=== PATIENT | female | born 1970 | race Caucasian/White ===

== ENCOUNTER 2020-02-23 08:42 | Outpatient (CLI) | payer BC, SELFPAY ==
--- NOTE | ~2020-02-23 | MM_ITS ---
EXAMINATION: MM screening [facility] w laura HISTORY: Screening mammogram TECHNIQUE: Craniocaudal and mediolateral oblique 3-D tomosynthesis images were obtained and synthetic 2-D images were generated. CAD analysis was submitted and interpreted. COMPARISON: No prior mammogram is available for comparison at this institution. BREAST PARENCHYMAL COMPOSITION: The breasts are heterogeneously dense, which may obscure small masses . FINDINGS: RIGHT BREAST: There is no evidence of suspicious mass, calcification, or architectural distortion to suggest malignancy. LEFT BREAST: There is a possible mass in the posterior third of the slightly lower outer breast. IMPRESSION: 1. Possible left breast mass which may represent the patient's baseline however no comparison is curr ently available. 2. Comparison with prior mammograms is necessary. BI-RADS Category 0: Incomplete: Needs comparison with prior mammograms. Reviewed, dictated and finalized at location A. MOBILE PARKER IMPRESSION: 1. Possible left breast mass which may represent the patient's baseline however no comparison is currently available. 2. Comparison with prior mammograms is necessary. BI-RADS Category 0: Incomplete: Needs comparison with prior mammograms.
== END 2020-02-23 08:43 | disposition home or self-care (01) ==
LOC: ANHIMG 08:45
PROVIDERS: PCP Internal Medicine; Visit Provider Obstetrics & Gynecology Gynecology
DX: Z12.31 Encounter for screening mammogram for malignant neoplasm of breast (principal); R91.8 Other nonspecific abnormal finding of lung field
CPT/HCPCS: 77063; 77067

== ENCOUNTER 2020-04-15 13:07 | Outpatient (CLI) | payer BC, SELFPAY ==
--- NOTE | ~2020-04-15 | MMUS_ITS ---
EXAMINATION: MM diagnostic mammo unilat LT, US breast LT limited HISTORY: Possible left breast mass on screening mammogram TECHNIQUE: Additional 3-D tomosynthesis images of the left breast were performed and synthetic 2-D im ages were generated. CAD analysis was submitted and interpreted. High resolution limited left breast ultrasound was performed. COMPARISON: 10/23/2019, 03/13/2019, 02/20/2019, 01/28/2018 BREAST PARENCHYMAL COMPOSITION: The breasts are heterogeneously dense, which may obscure small masses . FINDINGS: MAMMOGRAPHIC FINDINGS: No definite persistent mass is identified with spot compression views of the breast. There is no susp icious calcification or architectural distortion. ULTRASOUND: There is no evidence of focal abnormal solid or cystic lesion in the vicinity of the mammographic fin ding in question. IMPRESSION: 1. No mammographic or sonographic evidence of malignancy. 2. Recommend routine screening mammography in one year. BI-RADS Category 1: Negative Reviewed, dictated and finalized at location A. UNITY SERVICE WORKER IMPRESSION: 1. No mammographic or sonographic evidence of malignancy. 2. Recommend routine screening mammography in one year. BI-RADS Category 1: Negative
== END 2020-04-15 13:08 | disposition home or self-care (01) ==
LOC: ANHIMG 13:08
PROVIDERS: PCP Internal Medicine; Visit Provider Obstetrics & Gynecology Gynecology
DX: R92.8 Other abnormal and inconclusive findings on diagnostic imaging of breast (principal)
CPT/HCPCS: 76642; 77065

== ENCOUNTER 2021-02-23 11:40 | Outpatient (CLI) | payer BC, SELFPAY ==
--- NOTE | ~2021-02-23 | MM_ITS ---
EXAMINATION: MM screening [facility] BI w laura HISTORY: Screening mammogram TECHNIQUE: Craniocaudal and mediolateral oblique 3-D tomosynthesis images were obtained and synthetic 2-D images were generated. CAD analysis was submitted and interpreted. COMPARISON: 04/15/2020, 02/23/2020, 03/13/2019 BREAST PARENCHYMAL COMPOSITION: The breasts are heterogeneously dense, which may obscure small masses . FINDINGS: There is no evidence of suspicious mass, calcification, or architectural distortion to sugg est malignancy in either breast. There has been no suspicious interval change. IMPRESSION: 1. No mammographic evidence of malignancy. 2. Recommend routine screening mammography in one year. BI-RADS Category 1: Negative Reviewed, dictated and finalized at location A. ING MACHINE OPERATOR [employer]PER [employer]
== END 2021-02-23 11:41 | disposition home or self-care (01) ==
LOC: ANHIMG 11:41
PROVIDERS: PCP Internal Medicine; Visit Provider Obstetrics & Gynecology Gynecology
DX: Z12.31 Encounter for screening mammogram for malignant neoplasm of breast (principal)
CPT/HCPCS: 77063; 77067

== ENCOUNTER 2022-03-15 08:54 | Outpatient (CLI) | payer BC, SELFPAY ==
--- NOTE | ~2022-03-15 | MM_ITS ---
EXAMINATION: MM screening [facility] BI w laura HISTORY: Screening mammogram TECHNIQUE: Craniocaudal and mediolateral oblique 3-D tomosynthesis images were obtained and synthetic 2-D images were generated. CAD analysis was submitted and interpreted. COMPARISON: 02/23/2021, 04/15/2020, 02/23/2020, 03/13/2019 BREAST PARENCHYMAL COMPOSITION: The breasts are heterogeneously dense, which may obscure small masses . FINDINGS: No suspicious mass, calcification, or architectural distortion are identified in either jd ast to suggest malignancy. There has been no suspicious interval change. IMPRESSION: 1. No mammographic evidence of malignancy. 2. Recommend routine screening mammography in one year. BI-RADS Category 1: Negative Reviewed, dictated and finalized at location A. F OPERATOR
== END 2022-03-15 08:55 | disposition home or self-care (01) ==
PROVIDERS: PCP Internal Medicine; Visit Provider Obstetrics & Gynecology Gynecology
DX: Z12.31 Encounter for screening mammogram for malignant neoplasm of breast (principal)
CPT/HCPCS: 77063; 77067

== ENCOUNTER 2023-01-19 03:49 | Day surgery (SDC) | payer BC, SELFPAY ==
[2023-01-08 13:40] VITALS: BMI 28.3
[2023-01-19 11:41] VITALS: BP 143/94; PULSE 77; RESP 16; TEMP 36.3; O2SAT 100
--- NOTE | 2023-01-19 11:48 | WPDANESEPPF ---
Anes - Initial Pre Proc Eval Procedure: Operation Date: 01/19/23 12:30 Proposed Procedures p Screening Colonoscopy - Luís Yost MD Date/Time: 01/19/23 11:48 Surgeon: Luís Yost MD Pre Op Diagnosis: neoplasm screening Patient Data Age: 52 Gender: F Height: 1.63 m Weight: 77.2 kg Last Vital Signs Temp 97.3 F L 01/19/23 11:41 Pulse 77 01/19/23 11:41 Resp 16 01/19/23 11:41 BP 143/94 H 01/19/23 11:41 Pulse Ox 100 01/19/23 11:41 O2 Del Method Room Air 01/19/23 11:41 Allergies Allergy/AdvReac Type Severity Reaction Status Date / Time prednisone AdvReac Unknown Unknown Verified 01/08/23 13:39 Home Medications Medication Instructions Recorded Confirmed Type lisinopril 20 2 tablet PO DAILY 11/09/20 01/19/23 History mg-hydrochlorothiazide 12.5 mg tablet oxybutynin chloride 10 mg 10 mg PO DAILY 11/09/20 01/08/23 History tablet,extended release 24 hr amlodipine 5 mg tablet 5 mg PO DAILY 09/07/22 01/19/23 History aspirin 81 mg tablet,delayed 81 mg PO DAILY 09/07/22 01/08/23 History release (Adult Low Dose Aspirin) azelastine 137 mcg (0.1 %) nasal 1 spray intranasal Q12H 09/07/22 01/08/23 History spray aerosol fexofenadine 180 mg tablet 180 mg PO DAILY 09/07/22 01/08/23 History (Roxy Allergy) Patient hx anesthesia problems: none Family hx anesthesia problems: none Results Review: All pre-operative results and documents have been reviewed as part of the pre-operative evaluation. [facility] Past Medical History Medical History (Updated 09/07/22 @ 10:14 by Vipul Weiner MD) History of MRSA infection Hypertension Pain of left heel Plantar fasciitis of left foot Polycystic kidney disease Screening for cholesterol level Screening for colon cancer Screening for thyroid disorder Seasonal allergies Ventral hernia with bowel obstruction Vitamin D deficiency Surgical History Surgical History (Updated 11/09/20 @ 10:10 by Kristan Rodriguez RT(R)) History of section History of hernia repair x2 Family History Family History Mother Diabetes mellitus Hypertension Father Hypertension Malignant neoplasm of prostate Other Family history of kidney disease Social History Social History (Updated 09/07/22 @ 09:55 by Lora [facility]) Smoking status: Never smoker Alcohol intake: current Drinks per week: 3 Alcohol use details: 2 per month Substance use: never Substance use type: does not use Lack of Transportation: No Lack of Food: Never True Current Housing: I Have Housing Concerned About Future Housing: No Difficulty Paying Gas/Electric Bills: No Difficulty Paying for Meds: No Currently Unemployed: No Education: Don't Know Difficulty w/ Childcare or Family Care: No Living arrangements: with family Occupation/Education: occupation 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 Informed Consent: The patient's anesthetic plan and its attendant risks and benefits were discussed with the patient/family/POA. Questions were solicited and answers provided to the satisfaction of the patient/family/POA.
[2023-01-19] MEDS: LACTATED RINGERS 1,000 ML 150 ML IV CONT (11:53)
--- NOTE | 2023-01-19 12:13 | PM.HPGS ---
History of Present Illness History of Present Illness Consent: Risks, benefits, and alternatives have been discussed and questions answered. Patient agrees to proceed with procedure. Chief complaint: neoplasm screening Narrative: Nadia Padgett is a 52 year old female Presents for screening colonoscopy. Patient's current weight appetite and bowel movements are normal. She denies abdominal pain. She has had no bleeding. Family history is noncontributory. Review of Systems Review of Systems: Review of systems noncontributory. [facility] Past Medical History Medical History (Updated 09/07/22 @ 10:14 by Vipul Weiner MD) History of MRSA infection Hypertension Pain of left heel Plantar fasciitis of left foot Polycystic kidney disease Screening for cholesterol level Screening for colon cancer Screening for thyroid disorder Seasonal allergies Ventral hernia with bowel obstruction Vitamin D deficiency Surgical History Surgical History (Updated 11/09/20 @ 10:10 by Kristan Rodriguez, RT(R)) History of section History of hernia repair x2 Family History Family History Mother Diabetes mellitus Hypertension Father Hypertension Malignant neoplasm of prostate Other Family history of kidney disease Social History Social History (Updated 09/07/22 @ 09:55 by Lora Barney [facility]) Smoking status: Never smoker Alcohol intake: current Drinks per week: 3 Alcohol use details: 2 per month Substance use: never Substance use type: does not use Lack of Transportation: No Lack of Food: Never True Current Housing: I Have Housing Concerned About Future Housing: No Difficulty Paying Gas/Electric Bills: No Difficulty Paying for Meds: No Currently Unemployed: No Education: Don't Know Difficulty w/ Childcare or Family Care: No Living arrangements: with family Occupation/Education: occupation 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 [employer] Spiritual care concerns: No Agree to blood products: Yes Meds Home Medications and Allergies Home Medications Medication Instructions Recorded Confirmed Type lisinopril 20 2 tablet PO DAILY 11/09/20 01/19/23 History mg-hydrochlorothiazide 12.5 mg tablet oxybutynin chloride 10 mg 10 mg PO DAILY 11/09/20 01/08/23 History tablet,extended release 24 hr amlodipine 5 mg tablet 5 mg PO DAILY 09/07/22 01/19/23 History aspirin 81 mg tablet,delayed 81 mg PO DAILY 09/07/22 01/08/23 History release (Adult Low Dose Aspirin) azelastine 137 mcg (0.1 %) nasal 1 spray intranasal Q12H 09/07/22 01/08/23 History spray aerosol fexofenadine 180 mg tablet 180 mg PO DAILY 09/07/22 01/08/23 History (Roxy Allergy) Allergies Allergy/AdvReac Type Severity Reaction Status Date / Time prednisone AdvReac Unknown Unknown Verified 01/08/23 13:39 Vital Signs Vital Signs - 24 hr 01/19/23 11:41 Temperature 97.3 F L Pulse Rate 77 Respiratory Rate 16 Blood Pressure 143/94 H Pulse Oximetry 100 Oxygen Delivery Room Air Exam Narrative: Physical exam reveals patient to be alert. Vital signs stable. HEENT exam is unremarkable. Patient is anicteric. Lungs are clear to auscultation and percussion. Heart is without murmur or extra sounds. Abdomen bowel sounds are present soft nontender with no organomegaly. Digital external rectal exam normal. Assessment and Plan Assessment and plan (1) Screening for colon cancer: Code(s): Z12.11 - Encounter for screening for malignant neoplasm of colon Status: Acute Assessment and Plan: Patient presents for neoplasia screening colonoscopy. She appears to be at average risk for colon polyps. Further recommendations may be given after endoscopy.
[2023-01-19 13:23] VITALS: BP 116/81; PULSE 83; RESP 21; O2SAT 100
[2023-01-19 13:33] VITALS: BP 95/65; PULSE 78; RESP 13; O2SAT 100
[2023-01-19 13:43] VITALS: BP 125/91; PULSE 73; RESP 18; O2SAT 100
== END 2023-01-19 13:47 | disposition home or self-care (01) ==
PROVIDERS: PCP Family Medicine; Visit Provider Internal Medicine Gastroenterology
PROC: 0DJD8ZZ Inspection of Lower Intestinal Tract, Via Natural or Artificial Opening Endoscopic (ICD-10-PCS; CPT 45378; principal; 2023-01-19 12:30)
DX: Z12.11 Encounter for screening for malignant neoplasm of colon (principal); K63.5 Polyp of colon; K64.8 Other hemorrhoids; I10 Essential (primary) hypertension; Z79.82 Long term (current) use of aspirin
CPT/HCPCS: 45380; 88305; J2704; J7120

== ENCOUNTER → 2023-05-10 07:12 | Outpatient (CLI) | payer BC, SELFPAY ==
--- NOTE | ~2023-05-10 | MM_ITS ---
EXAMINATION: MM screening [facility] w laura HISTORY: Screening TECHNIQUE: Craniocaudal and mediolateral oblique 3-D tomosynthesis images were obtained and synthetic 2-D images were generated. CAD analysis was submitted and interpreted. COMPARISON: Comparison to multiple prior studies sequentially, with oldest reviewed study dated 02/07. BREAST PARENCHYMAL COMPOSITION: Not dense: There are scattered areas of fibroglandular density. FINDINGS: There are new asymmetries in the upper outer quadrant of the right breast and periareolar l ocation of the left breast on CC view. There are no suspicious calcifications. IMPRESSION: 1. Developing bilateral breast asymmetries. 2. Additional mammographic views and possible breast ultrasound are recommended. BI-RADS Category 0: Incomplete: Needs additional imaging evaluation. Reviewed, dictated and finalized at location A. R ASSEMBLER IMPRESSION: 1. Developing bilateral breast asymmetries. 2. Additional mammographic views and possible breast ultrasound are recommended . BI-RADS Category 0: Incomplete: Needs additional imaging evaluation.
== END ==
PROVIDERS: PCP Obstetrics & Gynecology Gynecology; Visit Provider Obstetrics & Gynecology Gynecology
DX: Z12.31 Encounter for screening mammogram for malignant neoplasm of breast (principal); R92.8 Other abnormal and inconclusive findings on diagnostic imaging of breast
CPT/HCPCS: 77063; 77067

== ENCOUNTER → 2023-06-05 08:39 | Outpatient (CLI) | payer BC, SELFPAY ==
--- NOTE | ~2023-06-05 | MMUS_ITS ---
EXAMINATION: MM diagnostic [facility] BI w laura, US breast BI limited HISTORY: Follow-up right breast asymmetries TECHNIQUE: Additional 3-D tomosynthesis images of the breasts were performed and synthetic 2-D images were generated. CAD analysis was submitted and interpreted. High resolution limited bilateral breast ultrasound was performed. COMPARISON: Comparison to multiple prior studies sequentially, with oldest reviewed study dated 02/07. BREAST PARENCHYMAL COMPOSITION: Dense: The breasts are heterogeneously dense, which may obscure small masses FINDINGS: MAMMOGRAPHIC FINDINGS: Bilateral breast asymmetries are less apparent with spot compression and mediolateral views, most lik meron benign fibroglandular tissue. No discrete mass or architectural distortion is identified. ULTRASOUND: Limited bilateral breast ultrasound: Normal heterogeneous echotexture in both breasts. No discrete so lid or cystic mass. IMPRESSION: 1. No evidence for malignancy in either breast. 2. Routine yearly screening mammogram and regular clinical breast examination are recommended. BI-RADS Category 1: Negative Reviewed, dictated and finalized at location A. GATHERER IMPRESSION: 1. No evidence for malignancy in either breast. 2. Routine yearly screening mammogram and regular clinical breast examination a re recommended. BI-RADS Category 1: Negative
== END ==
PROVIDERS: PCP Obstetrics & Gynecology Gynecology; Visit Provider Obstetrics & Gynecology Gynecology
DX: R92.8 Other abnormal and inconclusive findings on diagnostic imaging of breast (principal)
CPT/HCPCS: 76642; 77062; 77066; G0279

== ENCOUNTER 2023-06-18 12:07 | Outpatient (CLI) | payer BC, SELFPAY ==
--- NOTE | ~2023-06-18 | DEXA_ITS ---
Bone Density Report Name: IVELISSE JEWELL Age: 52 Sex: Female Ethnicity: White Date of : 1970 Indication: postmenopausal; screening for osteoporosis; Referring Provider: ANDREW ROCHA Study: Bone densitometry was performed. Exam Date: June 18, 2023 Accession number: [id number] Bone Density: Region BMD T-score Z-score Classification AP Spine (L1-L4) 0.804 -2.2 -1.4 Osteopenia Femoral Neck (Left) 0.556 -2.6 -1.9 Osteoporosis Total Hip (Left) 0.720 -1.8 -1.3 Osteopenia Femoral Neck (Right) 0.625 -2.0 -1.2 Osteopenia Total Hip (Right) 0.816 -1.0 -0.5 Normal Total Hip Mean 0.768 -1.4 -0.9 Osteopenia World Health Organization criteria for BMD impression classify patients as: Normal (T-score at or above -1.0), Osteopenia (T-score between -1.0 and -2.5), or Osteoporosis (T-score at or below -2.5). 10-year Fracture Risk: FRAX not reported because: Some T-score for Spine Total or Hip Total or Femoral Neck at or below -2.5 Clinical Information Provided by Patient: Patient maximum height was 64.5 Menopause Age: 51 No regular weight bearing exercise Does not regularly consume dairy products Drinks caffeinated beverages Onset of menses at age 15 Number of children 2 Missed period for more than 6 months in a row Impression: The patient has osteoporosis, based on the Left Femoral Neck T-score. Discussion: INCREASED RISK OF FRACTURE. BONE DENSITY IS UNDESIRABLY LOW AT ONE OR MORE SKELETAL SITES, CONSISTENT WITH POSTMENOPAUSAL OSTEOPOROSIS. This patient's lowest T-score meets the World Health Organization's (WHO) criteria for osteoporosis at one or more sites (T-score -2.5 or below). In untreated patients, the risk of osteoporotic fracture increases approximately two-fold for each 1.0 SD decrease in T-score. Low bone density is not the only risk factor for fracture; also consider factors such as patient's age, frailty or poor health, risk of falling, risk of injury, previous osteoporotic fracture, family history of osteoporosis, cigarette smoking, low body weight, etc. Not everyone with low bone mineral density has osteoporosis; osteomalacia and other metabolic bone disorders should also be considered. Patients who have osteoporosis should be evaluated for specific diseases and conditions (secondary causes) that may cause or contribute to bone loss. The [place] Association of Clinical Endocrinologists (AACE) and National Osteoporosis Foundation (NOF) recommend pharmacologic intervention for all postmenopausal women whose T-score is in this range. The patient should follow a healthful lifestyle (good nutrition with adequate calcium and vitamin D, and appropriate weight-bearing exercise). Follow-Up: Consider a repeat BMD and Vertebral Fracture Assessment (VFA) exam in 2 years or sooner if medically necessary, to
== END 2023-06-18 12:08 ==
PROVIDERS: PCP Obstetrics & Gynecology Gynecology; Visit Provider Obstetrics & Gynecology Gynecology
DX: M81.0 Age-related osteoporosis without current pathological fracture (principal); M85.89 Other specified disorders of bone density and structure, multiple sites; Z78.0 Asymptomatic menopausal state
CPT/HCPCS: 77080

== ENCOUNTER 2025-01-14 08:25 | Outpatient (CLI) | payer BC, SELFPAY ==
[2025-01-14 08:57] LABS: INR 1.0; Prothrombin Time 13.0 Seconds (11.1-14.7)
[2025-01-14 08:58] LABS: Partial Thromboplastin Time 29.8 Seconds (22.3-36.8)
[2025-01-14 09:55] LABS: Anion Gap 8 mmol/L (4-12); Blood Urea Nitrogen 46 mg/dL (7-17); Calcium 9.3 mg/dL (8.4-10.2); Carbon Dioxide 27 mmol/L (22-30); Chloride 101 mmol/L (98-107); Estimated Glomerular Filt Rate 16; Glucose 94 mg/dL (65-110); Potassium 3.8 mmol/L (3.4-5.0); Sodium 136 mmol/L (137-145)
== END 2025-01-14 08:26 | disposition home or self-care (01) ==
LOC: ANHSURGERY 08:28
PROVIDERS: Anesthesiology; PCP Nurse Practitioner Family; Visit Provider Obstetrics & Gynecology Gynecology
DX: N28.9 Disorder of kidney and ureter, unspecified (principal)
CPT/HCPCS: 36415; 80048; 85610; 85730

== ENCOUNTER 2025-01-19 00:35 | Day surgery (SDC) | payer BC, SELFPAY ==
[2025-01-13 15:41] VITALS: BMI 25.7
--- NOTE | 2025-01-13 16:11 | PC.NURSE ---
[facility] has started construction of its new state of the art ER which will open Spring 2026. With this, we anticipate parking may be a challenge for some our surgical patients and families. Parking spaces are limited but are available for all Surgical, obstetrics, and ER patients sharing this lot. If you arrive and find you are having a hard time finding a parking space, please note that we understand the challenges, please drive around the hospital and park near Hospital Entrance 1. When you enter this entrance, you can ask a volunteer to direct or take you back to the surgical waiting area to check in. We appreciate everyone?s understanding of these expected challenges while we build for your future. Report to the Outpatient Waiting Room, entrance under the green pavilion located off [address], at 1130 on 01-19-25. Planned Procedure Time: 1330.? Time changes happen often and if your time is changed the preop area will call you the afternoon before. - You and your visitor will be asked to self-screen and do not enter if you have any COVID symptoms. Please call surgeon if you need to reschedule. - A mask is optional within the hospital at this time. Patients may have clear liquids (water, carbonated beverages, clear teas, apple juice) until 3 hours prior to surgery with a maximum of 20 ounces. 1030 - No food from midnight until time of surgery and no smoking, or chewing tobacco (or any form of nicotine). No chewing gum, candy or mints. - Infants may have breast milk until 4 hours before surgery, formula 6 hours prior to surgery. - Children will be allowed to drink immediately following surgery.? If applicable, please bring a bottle or sippy cup to assist with drinking. Juice, water, soda, and popsicles are readily available.? For infants on formula, please bring formula the day of surgery.? Pacifiers are allowed. Take only the following medications with a SIP of water on the morning of surgery: amlodipine DO NOT STOP ANY OF YOUR OTHER PRESCRIPTION MEDICATIONS PRIOR TO SURGERY EXCEPT THE FOLLOWING Hold all vitamins and supplements for 3 days per anesthesiologist. (01-16-25) Medications to discontinue per physician: aspirin Date to take last dose: Per Dr. Maddox Please no make-up, nail french, hairspray, perfume, deodorant, or body powder the day of surgery.? No jewelry (including any body piercings) or valuables the day of surgery, leave them at home.? Please take a shower or bath the night before, or the morning of, surgery with an antibacterial soap.? Wear comfortable, loose fitting clothing.? Children are encouraged to wear pajamas. - Jewelry must be removed prior to entering the operating room.? Rings and piercings that are not removed may be cut off. - The hospital will not accept responsibility for valuables.? - Please leave all valuables, including medications, at home the day of surgery. If you are going home after surgery, a licensed otr tanker truck driver must drive you home.? - NO public transportation without another adult if you receive anesthesia. - We recommend that an adult stay with you for 24 hours following discharge. - We also recommend that you do not drive, make important decision, drink alcoholic beverages, or take any drugs that were not prescribed by your health care provider for at least 24 hours after your discharge time. For Pediatric surgeries, we recommend two adults accompany the child home. Follow any additional instructions given to you from your surgeon. Telephone instructions given to Nadia Padgett and asked if any additional questions and then verbalized understanding. Patient advised to call surgeon office or pre surgery nurse liaison [phone] if any additional questions.
--- OUTSIDE RECORDS SUMMARY | 2025-01-19 00:37 | XMS_ITS | Clinical Summary ---
Author Organization [facility] Address [address] [place] [id number] Care Team Providers Care Manager Of Health Name Role Phone Parisa Downs [facility] Primary Care Provider + Social History Tobacco Use Types Packs/Day Years Used Date Smoking Tobacco: Never Assessed Comments Unknown Sex and Gender Information Value Date Recorded Sex Assigned at Not on file Legal Sex Female 5:23 PM CDT Gender Identity Not on file Sexual Orientation Not on file Plan of Treatment Health Maintenance Due Date Last Done Comments Cervical Cancer Screening Pa p Smear (Age 30 to 64) Every 3 Years 1972 Colorectal Cancer Screening Colonoscopy (10 Years) 1972 Annual Physical 08/09/1975 Hepatitis C 1990 DTaP, Tdap and Td Vaccines ( 1 - Tdap) 08/09/1991 Hepatitis B Vaccines (1 of 3 - 19+ 3-dose series) 08/09/1991 Cervical Cancer Screening Pa p with HPV Testing (Age 30 to 64) Every 5 Years 2002 Cervical Cancer Screening wi HPV 2002 Mammogram Screening 03/13/2021 03/13/2019, 02/20/2019 Pneumococcal Vaccine: 50+ Years (1 of 1 - PCV) 2022 Zoster Vaccines (1 of 2) 2022 COVID-19 Vaccine (3 - 2024-2 6 season) 2024 06/30/2020, 06/08/2020 Influenza Adult (#1) 2025 Meningococcal B Vaccine Aged Out No l onger eligible based on patient's age to complete this topic Meningococcal Vaccine Aged Out No brandie kenn eligible based on patient's age to complete this topic RSV Immunizations Under 20 Months Aged Out No longer eligible b ased on patient's age to complete this topic Procedures Procedure Name Priority Date/Time Associated Diagnosis Comments MG DIAG ADD VIEW W LAM RT Routine 03/13/2019 2:43 PM [employer] Abnormal mammogram from Last 3 Months or Most Recently Relevant to Health Maintenance Results * MG DIAG ADD VIEW W LAM RT (03/13/2019 2:43 PM [employer]) Anatomical Region Laterality Modality Breast Right Mammography, Rad iographic Imaging 03/13/2019 2:40 PM [employer] Impressions 03/13/2019 2:45 PM [employer] IMPRESSION: 1. No mammographic evidence of malignancy. Recommend annual mammogram. Findings and recommendations discussed with the patient following the mammogram. 2. BI-RADS Category 2 - benign findings. 3. TISSUE TYPE: Category C: The breasts are heterogeneously dense, which may obscure small masses. MQSA BI-RADS Categories: Category 0 - needs additional imaging evaluation. Category 1 - negative. Category 2 - benign findings. Category 3 - probably benign findings, but short interval follow-up is recommended. Category 4 - suspicious abnormality and biopsy should be considered though the lesion may well be benign. Category 5 - highly suggestive of malignancy and appropriate action should be taken. A) A negative report should not delay a biopsy if a dominant or clinically suspicious mass is present. B) Adenosis and dense breasts may obscure an underlying neoplasm. C) Study interpreted with computer aided detection. Interpreted By: Mikael Ma, 03/13/2019 2:40 PM Narrative 03/13/2019 2:45 PM [employer] IMAGING STUDIES: MG DIAG ADD VIEW W LAM RT DATE: 03/13/2019 2:43 PM HISTORY: abnormal brigitte 48-year-old female with screening mammogram 02/20/2019. Patient has heterogeneously dense breast parenchymal pattern. In the right breast only on the cc view there was felt to be a focal asymmetry with potential architectural distortion and/or poorly circumscribed margins 8 cm from the nipple for which diagnostic ultrasound was initially suggested with mammography if necessary. COMPARISON: Ultrasound right breast 03/13/2019. Screening mammogram 02/20/2019, 01/28/2018, and 01/24/2017. DISCUSSION: On the screening study, the potential abnormality is noted on CC tomographic image 28 of 69 and approximately 7.8 cm from the nipple. No appreciable abnormal corresponding abnormality on the screening MLO views on my review as well. No apparent sonographic abnormality to correlate with the potential mammographic findings. Therefore, we proceeded with mammographic evaluation. Digital diagnostic right mammogram with CAD. ML view and spot compression CC and MLO views. 2-D imaging and 3-D tomography. Heterogeneously dense breast parenchymal pattern. The potential density and distortion does not persist on the current diagnostic views. As there is not a corresponding abnormality on the current ML view or MLO view nor on the targeted ultrasound, the finding was most likely consistent with superimposition of fibroglandular tissue and dense breasts. us Marya Maddox MD MAMMO Final Res ult from Last 3 Months or Most Recently Relevant to Health Maintenance [place] [address] [place] [address] Care Teams Manager Of Health Relationship Specialty Start Date End Date Parisa Downs, [employer]LEMENTARY [employer]UCATION [employer]- [address] [place] [id number] PCP - General Nurse Practitioner Family 02/13/24
--- OUTSIDE RECORDS SUMMARY | 2025-01-19 00:37 | XMS_ITS | Clinical Summary ---
Author Organization [facility] Address [address] [place] [address] Care Team Providers Care Undergraduate Advisor Name Role Phone Unavailable Primary Care Provider Unavailabl e Allergies No known active allergies Medications No known medications Active Problems No known active problems Social History Tobacco Use Types Packs/Day Years Used Date Smoking Tobacco: Never Assessed Comments Unknown Sex and Gender Information Value Date Recorded Sex Assigned at Not on file Legal Sex Female 3:53 PM CDT Gender Identity Not on file Sexual Orientation Not on file Last Filed Vital Signs Vital Sign Reading Time Taken Comments Blood Pressure 137/82 09/01/2020 5:00 PM CDT Pulse 70 09/01/2020 5:00 PM CDT Temperature 36.7 C (98 F) 09/01/2020 5:00 PM CDT Respiratory Rate - - Oxygen Saturation 98% 09/01/2020 5:00 PM CDT Inhaled Oxygen Concentration - - Weight 70.3 kg (155 lb) 09/01/2020 5:00 PM CDT Height 162.6 cm (5' 4) 09/01/2020 5:00 PM CDT Body Mass Index 26.61 09/01/2020 5:00 PM CDT Plan of Treatment Health Maintenance Due Date Last Done Comments DTAP/TDAP/TD VACCINES (1 - Tdap) 08/09/1991 HEPATITIS B VACCINES (1 of 3 - 19+ 3-dose series) 05/1991 HPV/Cotest (21-29) 1993 CERVICAL CANCER SCREENING 2002 HPV/Cotest (30-65) 2002 PAP SMEAR 2002 COLORECTAL SCREENING 2017 Colorectal Cancer Screening 2017 FIT-DNA Q 3 years 2017 FIT/FOBT Q 1 year 2017 Flex Sig/CT Colonography Q 5 years 2017 BREAST CANCER SCREENING 03/13/2020 03/13/2019 ZOSTER VACCINE (1 of 2) 2022 INFLUENZA VACCINE (#1) 2024 Insurance [facility]
--- OUTSIDE RECORDS SUMMARY | 2025-01-19 00:37 | XMS_ITS | Patient Health Record ---
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 Name Role Phone Dr Vipul Weiner MD Primary Care Provider Michelle Weeks Unavailable [phone] Allergies No Known Allergies Reason For Referral No Information Medications Medication SIG (Take, Route, Frequency, Duration) Notes Start Date End Date Status Azelastine HCl 137 MCG/SPRAY 2 spray(s) intranasally 2 times a day; Duration: 90 days Active Aspirin 81 MG 1 cap(s) orally ever y 4 hours; Duration: 30 day(s) Active EPINEPHRINE AUTO-INJECTOR 0.3 mg as directed intramuscularly once; Duration: 1 day Active Wegovy 1 MG/0.5ML 0.5 mL Subcutaneous Active FEXOFENADINE HYDROCHLORIDE 180 mg 1 tab(s) orally once a day Active Fluticasone Propionate 50 MCG/ACT 2 sprays in each nostril Nasally Twice a day; Duration: 30 days 06/16/2024 Active AZELASTINE HYDROCHLORIDE NASAL 137 mcg/inh 2 spray(s) intranasally 2 times a day; Duration: 90 days Active methylPREDNISolone 4 MG as directed Oral ly daily; Duration: 6 days 06/16/2024 Active Fexofenadine HCl 180 MG 1 tab(s) orally once a day Active EPINEPHrine 0.3 MG/0.3ML as directed Inj ection; Duration: 30 days 04/16/2024 Active Lisinopril 20 MG 1 tab(s) orally once a day Active amLODIPine Besylate 5 MG 1 tab(s) orally once a day; Duration: 30 day(s) Active oxyBUTYnin Chloride ER 10 MG 1 tab(s) or ally once a day; Duration: 30 day(s) Active Immunizations Vaccine Route Administration Date Status Comme nts NOC Tdap Unknown 2021 Administered Portal Infor mation Influenza Unknown 01/07/2022 Administered Portal Infor mation Social History Tobacco Use: Social History Observation Description Date Details (start date - stop date) Never Smoker NA - NA Sex Assigned At : Social History Observation Description Sex Assigned At Female Smoking Smart Form: Question Answer Notes Are you a: never smoker Problems Problem Type SNOMED Code ICD Code Onset Dates Problem Status W/U Status Risk Notes Problem Chronic allergic conjunctivitis (96008203) Other chronic allergic conjunctivitis (H10.45) Active confirmed Problem Allergic rhinitis caused by animal hair and dander (314212344270742) Allergic rhinitis due to animal (cat) (dog) hair and dander (J30.81) Active confirmed Problem Allergic rhinitis (26987499) Other allergic rhinitis (J30.89) Active confirmed Problem Chronic rhinitis (11833389) Chronic rhinitis (J31.0) Active confirmed Problem Contact dermatitis caused by cosmetics (38655427) Allergic contact dermatitis due to cosmetics (L23.2) Active confirmed Problem Allergic contact dermatitis due to animal (cat) (dog) dander (L23.81) Active confirmed Problem Dermatitis (953852604) Dermatitis, unspecified (L30.9) Active confirmed Problem Polycystic kidney disease (87195347) Polycystic kidney, unspecified (Q61.3) Active confirmed Problem Allergic rhinitis caused by pollen (disorder) (75084533) Allergic rhinitis due to pollen (J30.1) Active confirmed Problem Allergic rhinitis caused by animal hair and dander (691412176636610) Allergic rhinitis due to animal (cat) (dog) hair and dander (J30.81) Active confirmed Problem Allergic rhinitis (98132785) Other allergic rhinitis (J30.89) Active confirmed Problem Chronic allergic conjunctivitis (37032992) Other chronic allergic conjunctivitis (H10.45) Active confirmed Problem Essential hypertension (48391638) Essential (primary) hypertension (I10) Active confirmed Vital Signs Blood pressure diastolic 79 mm Hg 06/16/2024 8 Oximetry 100 % 06/16/2024 8 Height 64 in 06/16/2024 8 Blood pressure systolic 116 mm Hg 06/16/2024 8 Weight 172.0 lbs 06/16/2024 8 BMI 29.52 kg/m2 06/16/2024 8 Encounters Encounter Location Date Provider Diagnosis [address] [address] 01/08/2025 Michelle Daysi Allergic rhinitis du e to pollen J30.1 ; Other allergic rhinitis J30.89 ; Allergic rhinitis due to animal (cat) (dog) hair and dander J30.81 and Other chronic allergic conjunctivitis H10.[address] [address] 12/10/2024 Michelle Daysi Allergic rhinitis du e to pollen J30.1 ; Other allergic rhinitis J30.89 ; Allergic rhinitis due to animal (cat) (dog) hair and dander J30.81 and Other chronic allergic conjunctivitis H10.[address] [address] 11/12/2024 Michelle Daysi Allergic rhinitis du e to pollen J30.1 ; Other allergic rhinitis J30.89 ; Allergic rhinitis due to animal (cat) (dog) hair and dander J30.81 and Other chronic allergic conjunctivitis H10.[address] [address] 10/15/2024 Michelle Daysi Allergic rhinitis du e to pollen J30.1 ; Other allergic rhinitis J30.89 ; Allergic rhinitis due to animal (cat) (dog) hair and dander J30.81 and Other chronic allergic conjunctivitis H10.[address] [address] 10/08/2024 Michelle Daysi Allergic rhinitis du e to pollen J30.1 ; Other allergic rhinitis J30.89 ; Allergic rhinitis due to animal (cat) (dog) hair and dander J30.81 and Other chronic allergic conjunctivitis H10.[address] [address] 10/01/2024 Michelle Daysi Allergic rhinitis du e to pollen J30.1 ; Other allergic rhinitis J30.89 ; Allergic rhinitis due to animal (cat) (dog) hair and dander J30.81 and Other [facility] H[facility] [address] [place] [address] 09/23/2024 Michelle Daysi Allergic rhinitis du e to pollen J30.1 ; Other allergic rhinitis J30.89 ; Allergic rhinitis due to animal (cat) (dog) hair and dander J30.81 and Other chronic allergic conjunctivitis H10.45 [facility] [address] [place] [address] 09/17/2024 Michelle Daysi Allergic rhinitis du e to pollen J30.1 ; Other allergic rhinitis J30.89 ; Allergic rhinitis due to animal (cat) (dog) hair and dander J30.81 and Other chronic allergic conjunctivitis H10.45 [facility] [address] [place] [address] 09/10/2024 Michelle Daysi Allergic rhinitis du e to pollen J30.1 ; Other allergic rhinitis J30.89 ; Allergic rhinitis due to animal (cat) (dog) hair and dander J30.81 and Other chronic allergic conjunctivitis H10.45 [facility] [address] [place] [address] 09/03/2024 Michelle Daysi Allergic rhinitis du e to pollen J30.1 ; Other allergic rhinitis J30.89 ; Allergic rhinitis due to animal (cat) (dog) hair and dander J30.81 and Other chronic allergic conjunctivitis H10.45 [facility] [address] [place] [address] 08/27/2024 Michelle Daysi Allergic rhinitis du e to pollen J30.1 ; Other allergic rhinitis J30.89 ; Allergic rhinitis due to animal (cat) (dog) hair and dander J30.81 and Other chronic allergic conjunctivitis H10.45 [facility] [place] [address] [place] [address] 08/20/2024 Michelle Daysi Allergic rhinitis du e to pollen J30.1 ; Other allergic rhinitis J30.89 ; Allergic rhinitis due to animal (cat) (dog) hair and dander J30.81 and Other chronic allergic conjunctivitis H10.45 [facility] [address] [place] [address] 05/29/2024 Michelle Daysi Allergic rhinitis du e to pollen J30.1 ; Other allergic rhinitis J30.89 ; Allergic rhinitis due to animal (cat) (dog) hair and dander J30.81 and Other chronic allergic conjunctivitis H10.45 [facility] [place] [address] [place] [address] 05/14/2024 Michelle Daysi Allergic rhinitis du e to pollen J30.1 ; Other allergic rhinitis J30.89 ; Allergic rhinitis due to animal (cat) (dog) hair and dander J30.81 and Other chronic allergic conjunctivitis H10.45 [facility] [place] [address] [place] [address] 04/30/2024 Michelle Daysi Allergic rhinitis du e to pollen J30.1 ; Other allergic rhinitis J30.89 ; Allergic rhinitis due to animal (cat) (dog) hair and dander J30.81 and Other chronic allergic conjunctivitis H10.45 [facility] [place] [address] [place] [address] 04/16/2024 Michelle Daysi Allergic rhinitis du e to pollen J30.1 ; Other allergic rhinitis J30.89 ; Allergic rhinitis due to animal (cat) (dog) hair and dander J30.81 and Other chronic allergic conjunctivitis H10.45 [facility] [address] [place] [address] 03/26/2024 Michelle Daysi Allergic rhinitis du e to pollen J30.1 ; Other allergic rhinitis J30.89 ; Allergic rhinitis due to animal (cat) (dog) hair and dander J30.81 and Other chronic allergic conjunctivitis H10.45 [facility] [place] [address] [place] [address] 03/12/2024 Michelle Daysi Allergic rhinitis du e to pollen J30.1 ; Other allergic rhinitis J30.89 ; Allergic rhinitis due to animal (cat) (dog) hair and dander J30.81 and Other chronic allergic conjunctivitis H10.[address] [address] 02/21/2024 Michelle Tavarez Allergic rhinitis du e to pollen J30.1 ; Other allergic rhinitis J30.89 ; Allergic rhinitis due to animal (cat) (dog) hair and dander J30.81 and Other chronic allergic conjunctivitis H10.[address] [address] 01/23/2024 Michelle Tavarez Allergic rhinitis du e to pollen J30.1 ; Other allergic rhinitis J30.89 ; Allergic rhinitis due to animal (cat) (dog) hair and dander J30.81 and Other chronic allergic conjunctivitis H10.[address] [address] 06/12/2024 Michelle Sturm Allergic contact dermatitis due to cosmetics L23.2 ; Allergic rhinitis due to pollen J30.1 ; Other chronic allergic conjunctivitis H10.45 ; Allergic contact dermatitis due to animal (cat) (dog) dander L23.81 ; Other allergic rhinitis J30.89 and Allergic rhinitis due to animal (cat) (dog) hair and dander J30.[address] [address] 06/16/2024 Michelle Tavarez Allergic contact dermatitis due to cosmetics L23.2 ; Allergic rhinitis due to pollen J30.1 ; Allergic rhinitis due to animal (cat) (dog) hair and dander J30.81 ; Other chronic allergic conjunctivitis H10.45 ; Allergic contact dermatitis due to animal (cat) (dog) dander L23.81 and Other allergic rhinitis J30.89 [facility] [address] [address] 08/20/2024 Michelle Tavarez [address] [address] 08/14/2024 Michelle Daysi [address] [place] [address] 06/09/2024 Michellebrittnee Tavarez [facility] [address] [place] [address] 04/16/2024 Michelle Tavarez Allergic rhinitis du e to pollen J30.1 Assessments Encounter Date Diagnosis (ICD Code) Assessment Notes Treatment Notes Treatment Clinical Notes Section Notes 01/23/2024 Allergic rhinitis due to pollen (ICD-10 - J30.1) 01/23/2024 Other allergic rhinitis (ICD-10 - J30.89) 02/21/2024 Allergic rhinitis due to pollen (ICD-10 - J30.1) 02/21/2024 Other allergic rhinitis (ICD-10 - J30.89) 03/12/2024 Allergic rhinitis due to pollen (ICD-10 - J30.1) 03/12/2024 Other allergic rhinitis (ICD-10 - J30.89) 03/26/2024 Allergic rhinitis due to pollen (ICD-10 - J30.1) 03/26/2024 Other allergic rhinitis (ICD-10 - J30.89) 04/16/2024 Allergic rhinitis due to pollen (ICD-10 - J30.1) 04/16/2024 Other allergic rhinitis (ICD-10 - J30.89) 04/16/2024 Allergic rhinitis due to pollen (ICD-10 - J30.1) 04/30/2024 Allergic rhinitis due to pollen (ICD-10 - J30.1) 04/30/2024 Other allergic rhinitis (ICD-10 - J30.89) 05/14/2024 Allergic rhinitis due to pollen (ICD-10 - J30.1) 05/14/2024 Other allergic rhinitis (ICD-10 - J30.89) 05/29/2024 Allergic rhinitis due to pollen (ICD-10 - J30.1) 05/29/2024 Other allergic rhinitis (ICD-10 - J30.89) 06/12/2024 Allergic contact dermatitis due to cosmetics (ICD-10 - L23.2) Skin is currently clear. Dormer NAC-80 test patch testing showed sensitivity to hydroperoxides of limonene. 06/12/2024 Allergic rhinitis due to pollen (ICD-10 - J30.1) Nadia clearly suffers from atopic disease based upon our skin testing and history. Accordingly, we have introduced a new, aggressive medication regimen, discussed nasal washes and allergy-specific avoidance measures. Due to recent increase in symptoms plan to reformulate immunotherapy. She will return next week for skin testing and then plan to reformulate immunotherapy. Hold antihistamines x5 days. 06/16/2024 Allergic contact dermatitis due to cosmetics (ICD-10 - L23.2) Skin is currently clear. Dormer NAC-80 test patch testing showed sensitivity to hydroperoxides of limonene. 06/16/2024 Allergic rhinitis due to pollen (ICD-10 - J30.1) Nadia clearly suffers from atopic disease based upon our skin testing and history. Accordingly, we have introduced a new, aggressive medication regimen, discussed nasal washes and allergy-specific avoidance measures. Due to recent increase in symptoms with cats plan to reformulate immunotherapy. Skin testing today was negative to dog but otherwise consistent with skin testing in 2021. Plan for about 8 week build-up with increase in cat serum. 08/20/2024 Allergic rhinitis due to pollen (ICD-10 - J30.1) 08/20/2024 Other allergic rhinitis (ICD-10 - J30.89) 08/27/2024 Allergic rhinitis due to pollen (ICD-10 - J30.1) 08/27/2024 Other allergic rhinitis (ICD-10 - J30.89) 09/03/2024 Allergic rhinitis due to pollen (ICD-10 - J30.1) 09/03/2024 Other allergic rhinitis (ICD-10 - J30.89) 09/10/2024 Allergic rhinitis due to pollen (ICD-10 - J30.1) 09/10/2024 Other allergic rhinitis (ICD-10 - J30.89) 09/17/2024 Allergic rhinitis due to pollen (ICD-10 - J30.1) 09/17/2024 Other allergic rhinitis (ICD-10 - J30.89) 09/23/2024 Allergic rhinitis due to pollen (ICD-10 - J30.1) 09/23/2024 Other allergic rhinitis (ICD-10 - J30.89) 10/01/2024 Allergic rhinitis due to pollen (ICD-10 - J30.1) 10/01/2024 Other allergic rhinitis (ICD-10 - J30.89) 10/08/2024 Allergic rhinitis due to pollen (ICD-10 - J30.1) 10/08/2024 Other allergic rhinitis (ICD-10 - J30.89) 10/15/2024 Allergic rhinitis due to pollen (ICD-10 - J30.1) 10/15/2024 Other allergic rhinitis (ICD-10 - J30.89) 11/12/2024 Allergic rhinitis due to pollen (ICD-10 - J30.1) 11/12/2024 Other allergic rhinitis (ICD-10 - J30.89) 12/10/2024 Allergic rhinitis due to pollen (ICD-10 - J30.1) 12/10/2024 Other allergic rhinitis (ICD-10 - J30.89) 01/08/2025 Allergic rhinitis due to pollen (ICD-10 - J30.1) 01/08/2025 Other allergic rhinitis (ICD-10 - J30.89) 01/08/2025 Allergic rhinitis due to animal (cat) (dog) hair and dander (ICD-10 - J30.81) 12/10/2024 Allergic rhinitis due to animal (cat) (dog) hair and dander (ICD-10 - J30.81) 11/12/2024 Allergic rhinitis due to animal (cat) (dog) hair and dander (ICD-10 - J30.81) 10/15/2024 Allergic rhinitis due to animal (cat) (dog) hair and dander (ICD-10 - J30.81) 10/08/2024 Allergic rhinitis due to animal (cat) (dog) hair and dander (ICD-10 - J30.81) 10/01/2024 Allergic rhinitis due to animal (cat) (dog) hair and dander (ICD-10 - J30.81) 09/23/2024 Allergic rhinitis due to animal (cat) (dog) hair and dander (ICD-10 - J30.81) 09/17/2024 Allergic rhinitis due to animal (cat) (dog) hair and dander (ICD-10 - J30.81) 09/10/2024 Allergic rhinitis due to animal (cat) (dog) hair and dander (ICD-10 - J30.81) 09/03/2024 Allergic rhinitis due to animal (cat) (dog) hair and dander (ICD-10 - J30.81) 08/27/2024 Allergic rhinitis due to animal (cat) (dog) hair and dander (ICD-10 - J30.81) 08/20/2024 Allergic rhinitis due to animal (cat) (dog) hair and dander (ICD-10 - J30.81) 06/16/2024 Allergic rhinitis due to animal (cat) (dog) hair and dander (ICD-10 - J30.81) 06/12/2024 Other chronic allergic conjunctivitis (ICD-10 - H10.45) 05/29/2024 Allergic rhinitis due to animal (cat) (dog) hair and dander (ICD-10 - J30.81) 05/14/2024 Allergic rhinitis due to animal (cat) (dog) hair and dander (ICD-10 - J30.81) 04/30/2024 Allergic rhinitis due to animal (cat) (dog) hair and dander (ICD-10 - J30.81) 04/16/2024 Allergic rhinitis due to animal (cat) (dog) hair and dander (ICD-10 - J30.81) 03/26/2024 Allergic rhinitis due to animal (cat) (dog) hair and dander (ICD-10 - J30.81) 03/12/2024 Allergic rhinitis due to animal (cat) (dog) hair and dander (ICD-10 - J30.81) 02/21/2024 Allergic rhinitis due to animal (cat) (dog) hair and dander (ICD-10 - J30.81) 01/23/2024 Allergic rhinitis due to animal (cat) (dog) hair and dander (ICD-10 - J30.81) 01/23/2024 Other chronic allergic conjunctivitis (ICD-10 - H10.45) 02/21/2024 Other chronic allergic conjunctivitis (ICD-10 - H10.45) 03/12/2024 Other chronic allergic conjunctivitis (ICD-10 - H10.45) 03/26/2024 Other chronic allergic conjunctivitis (ICD-10 - H10.45) 04/16/2024 Other chronic allergic conjunctivitis (ICD-10 - H10.45) 04/30/2024 Other chronic allergic conjunctivitis (ICD-10 - H10.45) 05/14/2024 Other chronic allergic conjunctivitis (ICD-10 - H10.45) 05/29/2024 Other chronic allergic conjunctivitis (ICD-10 - H10.45) 06/12/2024 Allergic contact dermatitis due to animal (cat) (dog) dander (ICD-10 - L23.81) Nadia develops a rash on exposure to certain cats and dogs. Monitor for improvement as she continues immunotherapy. Plan to reformulate. 06/16/2024 Other chronic allergic conjunctivitis (ICD-10 - H10.45) 08/20/2024 Other chronic allergic conjunctivitis (ICD-10 - H10.45) 08/27/2024 Other chronic allergic conjunctivitis (ICD-10 - H10.45) 09/03/2024 Other chronic allergic conjunctivitis (ICD-10 - H10.45) 09/10/2024 Other chronic allergic conjunctivitis (ICD-10 - H10.45) 09/17/2024 Other chronic allergic conjunctivitis (ICD-10 - H10.45) 09/23/2024 Other chronic allergic conjunctivitis (ICD-10 - H10.45) 10/01/2024 Other chronic allergic conjunctivitis (ICD-10 - H10.45) 10/08/2024 Other chronic allergic conjunctivitis (ICD-10 - H10.45) 10/15/2024 Other chronic allergic conjunctivitis (ICD-10 - H10.45) 11/12/2024 Other chronic allergic conjunctivitis (ICD-10 - H10.45) 12/10/2024 Other chronic allergic conjunctivitis (ICD-10 - H10.45) 01/08/2025 Other chronic allergic conjunctivitis (ICD-10 - H10.45) 06/12/2024 Other allergic rhinitis (ICD-10 - J30.89) 06/16/2024 Allergic contact dermatitis due to animal (cat) (dog) dander (ICD-10 - L23.81) Nadia develops a rash on exposure to certain cats and dogs. Monitor for improvement as she continues immunotherapy. Plan to reformulate. 06/16/2024 Other allergic rhinitis (ICD-10 - J30.89) 06/12/2024 Allergic rhinitis due to animal (cat) (dog) hair and dander (ICD-10 - J30.81) 06/12/2024 Other 06/16/2024 Other Plan Of Treatment Next Appt Details Provider Name:Michelle yanez, 02/05/2025 09:30:00 AM, [address] [place], [address], Insurance Providers Payer Name Payer Address Payer Phone Subscriber Number Group Number Insured Name Patient Relationship to Insured Coverage Start Date Coverage End Date [facility] [id number] [place] [address] [id number] Noah Padgett Spouse - patient is the spouse of the insured 4 Medical (General) History Medical History History ICD Code Polycystic kidney, unspecified Q61.3 Essential (primary) hypertension I10 Allergic contact dermatitis due to kathia tics L23.2 Surgical History Surgery Date(Month/Year) Csection 02/01/2002 Hospitalization History Reason Date(Month/Year) Hernia Repair 12/08/2016 Tonsillectomy 12/08/2006
--- OUTSIDE RECORDS SUMMARY | 2025-01-19 00:38 | XMS_ITS ---
Author Organization [place] [address] [facility] Address [address] [place] [address] Care Team Providers Care Highway Administrative Engineer Name Role Phone Parisa Downs NUTRITION ASSOCIATE Primary Care Provider + Johnathon Herrera MD Unavailable [phone] Christina Mccrary RN Unavailable [phone] Marya Maddox MD Unavailable [phone] Transplant Episode Kidney Candidate [facility] ([place], [place]) [facility] Center waitlisted on 11/18/2024 Marked as Inactive on 01/13/2025 Reason: 03 - Candidate Work-up Incomplete Kidney CoordinatorChristina Mccrary RN Email: N/A Scores Score Value Updated Exceptions/Reas ons CPRA Not available EPTS (Calc) 18 01/19/2025 [place] Organ Diagnosis Organ Primary Contributory Kidney Polycystic Kidneys Care Team Name Role Phone Fax Email Christina Mccrary RN Kidney Coordinator [phone] N/A Benita Bai Primary Habilitative Interventionist N/A N/A N/A Johnathon Herrera MD Referring Physician [phone] N/A Isidra Barry Hot Room Attendant [phone] N/A N/A Events Pre-Transplant Referred: 08/07/2024 Evaluation began: 08/12/2024 Committee: 11/17/2024 Center waitlisted: 11/18/2024
--- OUTSIDE RECORDS SUMMARY | 2025-01-19 00:38 | XMS_ITS | Clinical Summary ---
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 Primary Care Provider + Johnathon Herrera MD Unavailable [phone] Christina Mccrary RN Unavailable [phone] Marya Maddox MD Unavailable [phone] Allergies No known active allergies Medications fluticasone (FLONASE) 50 mcg/actuation nasal spray Administer 1 spray into each nostril daily Active oxybutynin XL (DITROPAN-XL) 10 mg 24 hr tablet Take 1 tablet (10 mg total) by mouth daily 2 08/07/19 19 Active folic acid/multivit-min/ lutein (CENTRUM SILVER ORAL) Take 1 tablet by mouth daily Active risedronate (ACTONEL) 150 mg tablet Take 1 tablet (150 mg total) by mouth every 30 (thirty) days 10/29/19 24 Active azelastine (ASTELIN) 137 mcg (0.1 %) nasal spray Administer 1 spray into each nostril nightly Active EPINEPHrine 0.3 mg/0.3 mL auto-injection syringe Inject 0.3 mL (0.3 mg total) into the muscle as instructed once 04/16/19 25 Active fexofenadine (RHINA) 180 mg tablet Take 1 tablet (180 mg total) by mouth daily Active Wegovy 1.7 mg/0.75 mL auto-injector Inject 1.7 mg under the skin every 7 days 06/19/19 25 Active tretinoin (RETIN-A) 0.05 % cream Apply 1 Application topically nightly as needed 05/29/19 25 Active aspirin 81 mg enteric coated tablet Take 1 tablet (81 mg total) by mouth daily Active amLODIPine (NORVASC) 5 mg tablet Take 1 tablet (5 mg total) by mouth daily 90 tablet 2 06/25/19 25 Active lisinopril-hydroCH LOROthiazide (ZESTORETIC) 20-12.5 mg per tabletIndications: hypertension Take 2 tablets by mouth daily 180 tablet 3 10/21/19 25 026 Active ergocalciferol (VITAMIN D) 50,000 unit capsule Take 1 capsule (50,000 Units total) by mouth every 30 (thirty) days 4 capsule 10/30/19 25 025 Active olopatadine (Pataday Once Daily Relief) 0.7 % ophthalmic solutionIndication s:Allergic Conjunctivitis Administer 1 drop into both eyes daily Active Active Problems Problem Noted Date Diagnosed Date ESRD (end stage renal disease) 12/12/2024 Kidney transplant recipient 12/12/2024 CKD (chronic kidney disease) stage 4, GFR 15-29 ml/min 06/23/2024 ADPKD (autosomal dominant polycystic kidney dise ase) 10/11/2017 Essential hypertension 10/11/2017 Renal osteodystrophy 10/11/2017 Resolved Problems Problem Noted Date Diagnosed Date Resolved Date CKD (chronic kidney disease) stage 3, GFR 30-59 ml/min 09/09/2018 06/23/2024 Encounters Date Type Department Care Team Description 01/13/2025 Documentation [facility] Transplant Kidney [address] [facility] [address] Mailstop [phone] [place] [address] Benita Bai Waitlist Maintenance 01/13/2025 Telephone [facility] [address] [facility] 5th Floor [address] [phone] Bebe Camacho RN 01/12/2025 Documentation [facility] Transplant Kidney [address] [facility] [address] Mailstop [phone] [place] [address] Christina Mccrary, RN Waitlist Status Update 01/05/2025 Telephone [facility] Transplant Kidney [address] [facility] [address] Mailstop [phone] [place] [address] Royal Clarencecal 01/01/2025 Orders Only [facility] Medicine Surgery [address] [facility] Advanced Medicine 12th Floor [address] [id number] Keith Root MD 12/19/2024 4:20 PM CDT Lab [facility] Advanced [facility] ([facility]) [address] [place] [address] ESRD (end stage renal disease); Pre-transplant evaluation for kidney transplant 12/19/2024 Orders Only [facility] [address] [facility] Advanced [facility] 5th Floor [address] [phone] Johnathon Herrera MD CKD (chronic kidney disease) stage 4, GFR 15-29 ml/min (HCC) (Primary Dx); ADPKD (autosomal dominant polycystic kidney disease) 12/16/2024 Documentation [facility] Transplant Kidney [address] [facility] [address] Mailstop [phone] [place] [address] Benita Bai 12/16/2024 Documentation [facility] Transplant Kidney [address] [facility] [address] Mailstop [phone] [place] [address] Christina Mccrary RN 12/15/2024 Telephone [facility] Transplant Kidney [address] [facility] [address] Mailstop [phone] [place] [address] Christina Mccrary, RN Waitlist Maintenance 12/15/2024 Telephone [facility] Transplant Kidney [address] [facility] [address] Mailstop [phone] [place] [address] Benita Bai 12/12/2024 12:24 PM CDT - 12/12/2024 9:11 PM CDT Hospital Encounter [facility] [address] [facility] [place] [address] Chaz Beltrán MD PhD Discharge Disposition: Discharge to home or self care 12/12/2024 Telephone [facility] Transplant Kidney [address] [facility] [address] Mailstop [phone] [place] [address] Mic Edwards RN 12/12/2024 Orders Only [facility] Surgery [address] [facility] Advanced Medicine 12th Floor [address] [phone] Cleve Resendiz NP 12/12/2024 Documentation [facility] [address] [phone] Marya Mehta [facility] 12/12/2024 Telephone [facility] Transplant Kidney [address] [facility] [address] Mailstop [phone] [place] [address] Suly Devi RN Transplant Organ Offer 12/10/2024 Orders Only [facility] Surgery [address] [facility] Advanced Medicine 12th Floor [address] [id number] Keith Root MD 12/04/2024 Orders Only [facility] Surgery [address] [facility] Advanced [facility] 12th Floor [address] [phone] Joni Jo MD 11/28/2024 Telephone [facility] Transplant Kidney [address] [facility] [address] Mail[address] [id number] [place] [address] Isidra Barry 11/27/2024 Documentation [facility] Transplant Kidney [address] [facility] [address] Mailstop [phone] [place] [address] Soheila Gilliam Waitlist Maintenance 11/27/2024 Documentation [facility] Transplant Kidney [address] [facility] [address] [id number] [place] [address] Christina Mccrary, PAOLA Waitlist Status Update 11/27/2024 Telephone [facility] Transplant Kidney [address] [facility] [address] Mailstop [phone] [place] [address] CiscoalexanderIsidra hoang 11/21/2024 Telephone [facility] Transplant Kidney [address] [facility] [address] Mail[address] [phone] [place] [address] Indiaviktor Isidra 11/18/2024 Telephone [facility] Transplant Kidney [address] [facility] [address] Mailstop [phone] [place] [address] Isidra Barry 11/18/2024 Documentation [facility] Transplant Kidney [address] [facility] [address] Mailstop [phone] [place] [address] Benita Bai Waitlist Maintenance 11/18/2024 Telephone [facility] Transplant Kidney [address] [facility] [address] Mailstop [phone] [place] [address] Christina Mccrary, PAOLA Waitlist Status Update 11/17/2024 Telephone [facility] Transplant Kidney [address] [facility] [address] Mailstop [phone] [place] [address] Christina Mccrary, RN Kidney Eval 11/12/2024 1:10 PM CDT Lab [facility] Lab [address] [place] [address] Pre-transplant evaluation for kidney transplant; CKD (chronic kidney disease) stage 4, GFR 15-29 ml/min ([facility]) 11/11/2024 Telephone [facility] Transplant Kidney [address] [facility] [address] Mailstop [phone] [place] [address] Christina Mccrary, RN Kidney Eval 11/10/2024 3:00 PM CDT Office Visit [facility] [address] [place] [address] Medicine 5th Floor [address] [phone] Tonie Gee NP CKD (chronic kidney disease) stage 4, GFR 15-29 ml/min (HCC) (Primary Dx); Pre-transplant evaluation for kidney transplant; ADPKD (autosomal dominant polycystic kidney disease); Essential hypertension 11/10/2024 2:00 PM CDT Social Work [facility] Transplant Center [address] [facility], 8th Floor, [address] [address] 11/10/2024 9:18 AM CDT - 11/10/2024 11:59 PM CDT Hospital Encounter [facility] Cardiac Diagnostic Lab [address] [place] [address] Pre-transplant evaluation for kidney transplant; CKD (chronic kidney disease) stage 4, GFR 15-29 ml/min (HCC) Discharge Disposition: Discharge to home or self care 11/10/2024 8:05 AM CDT Lab [facility] ([facility]) [address] [place] [phone] Pre-transplant evaluation for kidney transplant; CKD (chronic kidney disease) stage 4, GFR 15-29 ml/min (HCC) 11/10/2024 8:03 AM CDT - 11/10/2024 11:59 PM CDT Hospital Encounter [facility] Radiology [facility] ([facility]) [address] [place] [address] Pre-transplant evaluation for kidney transplant; CKD (chronic kidney disease) stage 4, GFR 15-29 ml/min (HCC) Discharge Disposition: Discharge to home or self care 11/10/2024 8:02 AM CDT - 11/10/2024 11:59 PM CDT Hospital Encounter [facility] ([facility]) [address] [place] [address] Pre-transplant evaluation for kidney transplant; CKD (chronic kidney disease) stage 4, GFR 15-29 ml/min (HCC) Discharge Disposition: Discharge to home or self care 11/10/2024 7:56 AM CDT - 11/10/2024 11:59 PM CDT Hospital Encounter [facility] ([facility]) [address] [place] [address] Pre-transplant evaluation for kidney transplant; CKD (chronic kidney disease) stage 4, GFR 15-29 ml/min ([facility]) Discharge Disposition: Discharge to home or self care 11/05/2024 9:30 AM CDT Documentation [facility] Transplant Center [address] [facility] for Advance Medicine, 8th Floor, [address] [address] Isidra Barry 11/05/2024 Documentation [facility] Transplant Kidney [address] [facility] [address] Mailstop [phone] [place] [address] Monika Barrera 11/05/2024 Telephone [facility] Transplant Kidney [address] [facility] [address] Mailstop [phone] [place] [address] Isidra Barry 10/28/2024 Telephone [facility] Transplant Kidney [address] [facility] [address] Mail[address] [phone] [place] [address] Isidra Barry from Last 3 Months Surgical History Surgery Date Site/Laterality Comments HERNIA REPAIR Medical History Medical History Date Comments Hypertension History of blood clots 12/01/2020 Left leg Osteopetrosis DVT of lower extremity (deep venous thrombosis) ([facility]) Osteoporosis Family History Medical History Relation Name Comments Hypertension Father Hypertension Mother Heart attack Paternal Grandfather Polycystic kidney disease Son Relation Name Status Comments Father Mother Paternal Grandfather Son Social History Tobacco Use Types Packs/Day Years Used Date Smoking Tobacco: Never Passive Smoke Exposure: Never Smokeless Tobacco: Never Tobacco Cessation:Counseling Given: Not Answered Alcohol Use Standard Drinks/Week Comments Not Currently 0 (1 standard drink = 0.6 oz pur e alcohol) Social Connection and Isolation Panel Answer Date Recorded In a typical week, how many times do you talk on the phone with family, friends, or neighbors? More than three times a week 11/11/2024 How often do you get togethe r with friends or relatives? Twice a week 11/11/2024 How often do you attend [facility] or catholic services? 1 to 4 times per year 11/11/2024 Do you belong to any clubs o r organizations such as judaism groups, unions, fraternal or athletic groups, or school groups? No 11/11/2024 How often do you attend meet ings of the clubs or organizations you belong to? Never 11/11/2024 Are you , , di vorced, , never , or living with a partner? 11/11/2024 Overall Financial Resource Strain (CARDIA) Answe r Date Recorded How hard is it for you to pa y for the very basics like food, housing, medical care, and heating? Not hard at all 11/11/2024 PHQ-2 Answer Date Recorded PHQ-2 Total Score 0 11/11/2024 PRAPARE - Transportation Answer Date Re corded In the past 12 months, has l ack of transportation kept you from medical appointments or from getting medications? No 08/2024 In the past 12 months, has l ack of transportation kept you from meetings, work, or from getting things needed for daily living? No 11/11/2024 PHQ-9 Answer Date Recorded PHQ-9 Total Score 0 11/11/2024 Housing Stability Vital Sign Answer Ben e Recorded In the last 12 months, was t here a time when you were not able to pay the mortgage or rent on time? No 11/11/2024 In the past 12 months, how m any times have you moved where you were living? 0 11/11/2024 At any time in the past 12 m [facility], were you homeless or living in a longterm (including now)? No 11/11/2024 Social Connection and Isolation Panel Answer Date Recorded In a typical week, how many times do you talk on the phone with family, friends, or neighbors? More than three times a week 12/12/2024 How often do you get togethe r with friends or relatives? Twice a week 12/12/2024 How often do you attend chur ch or catholic services? 1 to 4 times per year 12/12/2024 Do you belong to any clubs o r organizations such as judaism groups, unions, fraternal or athletic groups, or school groups? No 12/12/2024 How often do you attend meet ings of the clubs or organizations you belong to? Never 12/12/2024 Are you , , di vorced, , never , or living with a partner? 12/12/2024 Overall Financial Resource Strain (CARDIA) Answe r Date Recorded How hard is it for you to pa y for the very basics like food, housing, medical care, and heating? Not hard at all 12/12/2024 Hunger Vital Sign Answer Date Recorded Within the past 12 months, y ou worried that your food would run out before you got the money to buy more. Never true 12/13/19 25 Within the past 12 months, t he food you bought just didn't last and you didn't have money to get more. Never true 12/12/2024 PRAPARE - Transportation Answer Date Re corded In the past 12 months, has l ack of transportation kept you from medical appointments or from getting medications? No 08/2024 In the past 12 months, has l ack of transportation kept you from meetings, work, or from getting things needed for daily living? No 12/12/2024 Housing Stability Vital Sign Answer Ben e Recorded In the last 12 months, was t here a time when you were not able to pay the mortgage or rent on time? No 12/12/2024 In the past 12 months, how m any times have you moved where you were living? 0 12/12/2024 At any time in the past 12 m [facility], were you homeless or living in a longterm (including now)? No 12/12/2024 [facility] Utilities Answer Date Recorded In the past 12 months has th e electric, gas, oil, or water company threatened to shut off services in your home? No 12/12/2024 Personal Safety Answer Date Recorded Have you ever been in or are you currently in a harmful physical or emotional relationship or is someone making you feel afraid or unsafe? 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 Gender Identity Female 12/22/2020 3:33 AM CDT Sexual Orientation Straight 12/22/2020 3: 33 AM CDT Obstetrics History Last Filed Vital Signs Vital Sign Reading Time Taken Comments Blood Pressure 135/88 12/12/2024 7:40 PM CDT Pulse 77 12/12/2024 7:40 PM CDT Temperature 36.7 C (98.1 F) 12/12/2024 7:40 PM CDT Respiratory Rate 16 12/12/2024 7:40 PM CDT Oxygen Saturation 97% 12/12/2024 7:40 PM CDT Inhaled Oxygen Concentration - - Weight 71.3 kg (157 lb 3.2 oz) 12/12/2024 12:30 PM CDT Height 162.6 cm (5' 4) 12/12/2024 12:30 PM CDT Body Mass Index 26.98 12/12/2024 12:30 PM CDT Plan of Treatment Scheduled Procedures Name Priority Associated Diagnoses Date/Ti me TRANSPLANT KIDNEY ESRD (end stage renal disease) Health Maintenance Due Date Last Done Comments Cervical Cancer Screening 1972 Colon Cancer Screening-Colonoscopy 1972 DTaP/Tdap/Td Vaccine (1 - Tdap) 08/09/1983 Regular Well Visit/Exam 18-64 1990 Breast Cancer Screening-Mammogram 02/21/2020 02/20/2019 Zoster Vaccine (1 of 2) 2022 Influenza Vaccine (#1) 2024 9, 01/06/2018, 01/30/2017, Additional history exists Depression Screening 11/10/2025 11/10/2024, 11/11/19 25 Hepatitis B Screening Completed 12/12/2024 Hepatitis C Screening Completed 12/12/2024 , 12/12/2024, 11/10/2024 Pneumococcal vaccine <65 Aged Out No longer eligible based on patient's age to complete this topic Procedures Procedure Name Priority Date/Time Associated Diagnosis Comments HLA VIRTUAL CROSSMATCH RECIPIENT REPORT 01/01/2025 9:11 PM CDT HLA CROSSMATCH REPORT 12/19/2024 4:26 PM CDT HLA ANTIBODY SCREEN BY PRA Routine 12/19/2024 4:26 PM CDT ESRD (end stage renal disease) Pre-transplant evaluation for kidney transplant HLA CROSSMATCH, AUTO Routine 12/19/2024 4:26 PM CDT ESRD (end stage renal disease) Pre-transplant evaluation for kidney transplant HLA CROSSMATCH RECIPIENT Routine 12/19/2024 4:26 PM CDT ESRD (end stage renal disease) Pre-transplant evaluation for kidney transplant HLA DONOR SPECIFIC ANTIBODY REPORT 12/15/2024 8:12 AM CDT XR CHEST 1 VIEW ED Urgent/IP Urgent 12/12/2024 2:07 PM CDT HCG, URINE, QUALITATIVE STAT 12/12/2024 1:51 PM CDT HIV 1/2 ANTIBODY PLUS P24 ANTIGEN STAT 12/12/2024 1:51 PM CDT HEPATITIS C ANTIBODY STAT 12/12/2024 1:51 PM CDT HEPATITIS C RNA, QUANTITATIVE, PCR STAT 12/12/2024 1:51 PM CDT HEPATITIS B SURFACE ANTIGEN STAT 12/12/2024 1:51 PM CDT HEPATITIS B SURFACE ANTIBODY (IMMUNE STATUS) STAT 12/12/2024 1:51 PM CDT HEPATITIS B CORE ANTIBODY, TOTAL STAT 12/12/2024 1:51 PM CDT IRON PROFILE W/ IBC STAT 12/12/2024 1 2:53 PM CDT LIPID PANEL STAT 12/12/2024 12:53 PM CDT URIC ACID STAT 12/12/2024 12:53 PM CDT FERRITIN STAT 12/12/2024 12:53 PM CDT HEMOGLOBIN A1C STAT 12/12/2024 12:53 PM CDT EGFR STAT 12/12/2024 12:53 PM CDT DIFFERENTIAL AUTO STAT 12/12/2024 12: 53 PM CDT HLA ANTIBODY SCREEN BY PRA STAT 12/12/2024 12:53 PM CDT TYPE AND SCREEN STAT 12/12/2024 12:53 PM CDT PHOSPHORUS STAT 12/12/2024 12:53 PM CDT PROTIME-INR STAT 12/12/2024 12:53 PM CDT COMPREHENSIVE METABOLIC PANEL STAT 12/12/2024 12:53 PM CDT CBC WITH AUTO DIFFERENTIAL STAT 12/12/2024 12:53 PM CDT APTT STAT 12/12/2024 12:53 PM CDT URINE CULTURE Routine 12/12/2024 12:53 PM CDT ECG 12-LEAD STAT 12/12/2024 12:31 PM CDT HLA CROSSMATCH REPORT 12/12/2024 12:29 PM CDT HLA ANTIBODY SCREEN - PRA (CLASS I AND CLASS II) Routine 12/12/2024 12:29 PM CDT HLA ANTIBODY SCREEN - SAB (CLASS I AND CLASS II) Routine 12/12/2024 12:29 PM CDT HLA CROSSMATCH, ALLO STAT 12/12/2024 12:29 PM CDT HLA ANTIBODY SCREEN BY PRA OR SAB PER SCHEDULE (CLASS I AND CLASS II) STAT 12/12/2024 12:29 PM CDT HLA VIRTUAL CROSSMATCH RECIPIENT REPORT 12/10/2024 9:35 PM CDT HLA VIRTUAL CROSSMATCH RECIPIENT REPORT 12/04/2024 3:16 PM CDT F5 (FVL) AND F2 (PROTHROMBIN) MUTATIONS Routine 11/12/2024 1:23 PM CDT Pre-transplant evaluation for kidney transplant CKD (chronic kidney disease) stage 4, GFR 15-29 ml/min ([facility]) CARDIOLIPIN ANTIBODY, IGG AND IGM Routine 11/12/2024 1:23 PM CDT Pre-transplant evaluation for kidney transplant CKD (chronic kidney disease) stage 4, GFR 15-29 ml/min (HCC) BETA 2 GLYCOPROTEIN IGG AB Routine 11/12/2024 1:23 PM CDT Pre-transplant evaluation for kidney transplant CKD (chronic kidney disease) stage 4, GFR 15-29 ml/min (HCC) BETA 2 GLYCOPROTEIN IGM AB Routine 11/12/2024 1:23 PM CDT Pre-transplant evaluation for kidney transplant CKD (chronic kidney disease) stage 4, GFR 15-29 ml/min (HCC) PROTEIN S ANTIGEN, FREE Routine 11/12/2024 1:23 PM CDT Pre-transplant evaluation for kidney transplant CKD (chronic kidney disease) stage 4, GFR 15-29 ml/min (HCC) ANTITHROMBIN Routine 11/12/2024 1:23 PM CDT Pre-transplant evaluation for kidney transplant CKD (chronic kidney disease) stage 4, GFR 15-29 ml/min (HCC) PROTEIN C ACTIVITY Routine 11/12/2024 1: 23 PM CDT Pre-transplant evaluation for kidney transplant CKD (chronic kidney disease) stage 4, GFR 15-29 ml/min (HCC) LUPUS ANTICOAGULANT PANEL PLUS REFLEXES Routine 11/12/2024 1:23 PM CDT Pre-transplant evaluation for kidney transplant CKD (chronic kidney disease) stage 4, GFR 15-29 ml/min (HCC) HLA SOLID ORGAN TYPING REPORT 11/11/2024 12:09 PM CDT STRESS ECHO EXERCISE W DOPPLER/CF W CONTRAST Routine 11/10/2024 11:47 AM CDT Pre-transplant evaluation for kidney transplant CKD (chronic kidney disease) stage 4, GFR 15-29 ml/min (HCC) CT ABDOMEN PELVIS WO CONTRAST Schedule Routine, Read Routine (OP Routine) 11/10/2024 8:59 AM CDT Pre-transplant evaluation for kidney transplant CKD (chronic kidney disease) stage 4, GFR 15-29 ml/min (HCC) ECG 12-LEAD Routine 11/10/2024 8:26 AM CDT Pre-transplant evaluation for kidney transplant CKD (chronic kidney disease) stage 4, GFR 15-29 ml/min (HCC) ABO/RH Routine 11/10/2024 8:25 AM CDT Pre-transplant evaluation for kidney transplant CKD (chronic kidney disease) stage 4, GFR 15-29 ml/min (HCC) EGFR Routine 11/10/2024 8:15 AM CDT Pre-transplant evaluation for kidney transplant CKD (chronic kidney disease) stage 4, GFR 15-29 ml/min (HCC) DIFFERENTIAL AUTO Routine 11/10/2024 8:1 5 AM CDT Pre-transplant evaluation for kidney transplant CKD (chronic kidney disease) stage 4, GFR 15-29 ml/min (HCC) CBC WITH AUTO DIFFERENTIAL Routine 11/10/2024 8:15 AM CDT Pre-transplant evaluation for kidney transplant CKD (chronic kidney disease) stage 4, GFR 15-29 ml/min (HCC) COMPREHENSIVE METABOLIC PANEL Routine 11/10/2024 8:15 AM CDT Pre-transplant evaluation for kidney transplant CKD (chronic kidney disease) stage 4, GFR 15-29 ml/min (HCC) CREATININE, URINE, RANDOM Routine 11/10/2024 8:15 AM CDT Pre-transplant evaluation for kidney transplant CKD (chronic kidney disease) stage 4, GFR 15-29 ml/min (HCC) FERRITIN Routine 11/10/2024 8:15 AM CDT Pre-transplant evaluation for kidney transplant CKD (chronic kidney disease) stage 4, GFR 15-29 ml/min (HCC) GAMMA GT Routine 11/10/2024 8:15 AM CDT Pre-transplant evaluation for kidney transplant CKD (chronic kidney disease) stage 4, GFR 15-29 ml/min (HCC) HEMOGLOBIN A1C Routine 11/10/2024 8:15 AM CDT Pre-transplant evaluation for kidney transplant CKD (chronic kidney disease) stage 4, GFR 15-29 ml/min (HCC) IRON PROFILE W/ IBC Routine 11/10/2024 8 :15 AM CDT Pre-transplant evaluation for kidney transplant CKD (chronic kidney disease) stage 4, GFR 15-29 ml/min (HCC) LIPID PANEL Routine 11/10/2024 8:15 AM CDT Pre-transplant evaluation for kidney transplant CKD (chronic kidney disease) stage 4, GFR 15-29 ml/min (HCC) PTH Routine 11/10/2024 8:15 AM CDT Pre-transplant evaluation for kidney transplant CKD (chronic kidney disease) stage 4, GFR 15-29 ml/min (HCC) APTT Routine 11/10/2024 8:15 AM CDT Pre-transplant evaluation for kidney transplant CKD (chronic kidney disease) stage 4, GFR 15-29 ml/min (HCC) PHOSPHORUS Routine 11/10/2024 8:15 AM CDT Pre-transplant evaluation for kidney transplant CKD (chronic kidney disease) stage 4, GFR 15-29 ml/min (HCC) PROTEIN, URINE, RANDOM Routine 11/10/2024 8:15 AM CDT Pre-transplant evaluation for kidney transplant CKD (chronic kidney disease) stage 4, GFR 15-29 ml/min (HCC) PROTIME-INR Routine 11/10/2024 8:15 AM CDT Pre-transplant evaluation for kidney transplant CKD (chronic kidney disease) stage 4, GFR 15-29 ml/min (HCC) TYPE AND SCREEN Routine 11/10/2024 8:15 AM CDT Pre-transplant evaluation for kidney transplant CKD (chronic kidney disease) stage 4, GFR 15-29 ml/min (HCC) URINALYSIS AND REFLEX TO MICROSCOPIC Routine 11/10/2024 8:15 AM CDT Pre-transplant evaluation for kidney transplant CKD (chronic kidney disease) stage 4, GFR 15-29 ml/min (HCC) URIC ACID Routine 11/10/2024 8:15 AM CDT Pre-transplant evaluation for kidney transplant CKD (chronic kidney disease) stage 4, GFR 15-29 ml/min (HCC) LR HLA TYPING (CLASS I AND CLASS II) Routine 11/10/2024 8:15 AM CDT Pre-transplant evaluation for kidney transplant CKD (chronic kidney disease) stage 4, GFR 15-29 ml/min (HCC) HLA CLASS I DNA (ABC) RECIPIENT Routine 11/10/2024 8:15 AM CDT Pre-transplant evaluation for kidney transplant CKD (chronic kidney disease) stage 4, GFR 15-29 ml/min (HCC) HLA CLASS II DNA (DR, DQ, DP) RECIPIENT Routine 11/10/2024 8:15 AM CDT Pre-transplant evaluation for kidney transplant CKD (chronic kidney disease) stage 4, GFR 15-29 ml/min (HCC) HLA ANTIBODY SCREEN - SAB (CLASS I AND CLASS II) Routine 11/10/2024 8:15 AM CDT Pre-transplant evaluation for kidney transplant CKD (chronic kidney disease) stage 4, GFR 15-29 ml/min (HCC) HLA ANTIBODY SCREEN BY SINGLE ANTIGEN Routine 11/10/2024 8:15 AM CDT Pre-transplant evaluation for kidney transplant CKD (chronic kidney disease) stage 4, GFR 15-29 ml/min (HCC) CMV, IGG Routine 11/10/2024 8:15 AM CDT Pre-transplant evaluation for kidney transplant CKD (chronic kidney disease) stage 4, GFR 15-29 ml/min (HCC) SHAISTA-FLORES VIRUS VCA ANTIBODY PANEL Routine 11/10/2024 8:15 AM CDT Pre-transplant evaluation for kidney transplant CKD (chronic kidney disease) stage 4, GFR 15-29 ml/min (HCC) HIV 1/2 ANTIBODY PLUS P24 ANTIGEN Routine 11/10/2024 8:15 AM CDT Pre-transplant evaluation for kidney transplant CKD (chronic kidney disease) stage 4, GFR 15-29 ml/min (HCC) HSV 1 ANTIBODY, IGG Routine 11/10/2024 8 :15 AM CDT Pre-transplant evaluation for kidney transplant CKD (chronic kidney disease) stage 4, GFR 15-29 ml/min (HCC) HSV 2 ANTIBODY, IGG Routine 11/10/2024 8 :15 AM CDT Pre-transplant evaluation for kidney transplant CKD (chronic kidney disease) stage 4, GFR 15-29 ml/min (HCC) HEPATITIS B CORE ANTIBODY, TOTAL Routine 11/10/2024 8:15 AM CDT Pre-transplant evaluation for kidney transplant CKD (chronic kidney disease) stage 4, GFR 15-29 ml/min (HCC) HEPATITIS B SURFACE ANTIBODY (IMMUNE STATUS) Routine 11/10/2024 8:15 AM CDT Pre-transplant evaluation for kidney transplant CKD (chronic kidney disease) stage 4, GFR 15-29 ml/min (HCC) HEPATITIS B SURFACE ANTIGEN Routine 11/10/2024 8:15 AM CDT Pre-transplant evaluation for kidney transplant CKD (chronic kidney disease) stage 4, GFR 15-29 ml/min (HCC) HEPATITIS C ANTIBODY Routine 11/10/2024 8:15 AM CDT Pre-transplant evaluation for kidney transplant CKD (chronic kidney disease) stage 4, GFR 15-29 ml/min (HCC) RPR Routine 11/10/2024 8:15 AM CDT Pre-transplant evaluation for kidney transplant CKD (chronic kidney disease) stage 4, GFR 15-29 ml/min (HCC) VARICELLA ZOSTER ANTIBODY, IGG Routine 11/10/2024 8:15 AM CDT Pre-transplant evaluation for kidney transplant CKD (chronic kidney disease) stage 4, GFR 15-29 ml/min (HCC) XR CHEST PA LATERAL 2 VIEWS Schedule Routine, Read Routine (OP Routine) 11/10/2024 8:08 AM CDT Pre-transplant evaluation for kidney transplant CKD (chronic kidney disease) stage 4, GFR 15-29 ml/min (HCC) from Last 3 Months Results * HLA Virtual Crossmatch Recipient Report (01/01/2025 9:11 PM CDT) Keith Root MD LAB BLOOD ORDERABLES Final Result * HLA Crossmatch Report (12/19/2024 4:26 PM CDT) Kandace Nassar MD LAB BLOOD ORDERABLES Final Resul t * Collection Task for HLA Crossmatch, Recipient (12/19/2024 4:26 PM CDT) HLA XM Recipient Received Blood 12/19/2024 4:26 PM CDT 12/22/2024 12:51 PM CDT Kandace Nassar MD LAB BLOOD ORDERABLES Final Resul t [facility] Department [place] [address] * HLA Crossmatch, Auto (12/19/2024 4:26 PM CDT) Blood 12/19/2024 4:26 PM CDT 12/23/2024 9:06 AM CDT Narrative [facility] - 12/23/2024 9:06 AM CDT Kandace Nassar MD LAB BLOOD ORDERABLES Final Resul t [facility] * Collection Task for HLA Antibody Screen (12/19/2024 4:26 PM CDT) HLA Antibody Screen by PRA Received Blood 12/19/2024 4:26 PM CDT 12/22/2024 12:51 PM CDT us Kandace Nassar MD LAB BLOOD ORDERABLES Final Resul t [facility] [place] [address] * HLA Donor Specific Antibody Report (12/15/2024 8:12 AM CDT) Provider Scanning LAB BLOOD ORDERABLES Final Res ult * X-ray chest 1 view (12/12/2024 2:07 PM CDT) Anatomical Region Laterality Modality Body, Chest N/A Digital Radiogra phy 12/12/2024 3:04 PM CDT Impressions 12/12/2024 3:04 PM CDT Comparison to prior chest radiograph on 11/10/2024. Normal cardiomediastinal silhouette. No consolidations. No pleural effusions. No pneumothorax. Electronically signed by: Cleve Khan M.D. Narrative 12/12/2024 3:04 PM CDT EXAMINATION: 1 view chest radiograph Procedure Note Cleve Khan MD - 12/12/2024 EXAMINATION: 1 view chest radiograph IMPRESSION: Comparison to prior chest radiograph on 11/10/2024. Normal cardiomediastinal silhouette. No consolidations. No pleural effusions. No pneumothorax. Electronically signed by: Cleve Khan M.D. Cleve Resendiz SLEEP TECHNOLOGIST IMG XR PROCEDURES Final Res ult * HIV 1/2 Antibody plus p24 Antigen Blood (12/12/2024 1:51 PM CDT) HIV 1/2 ab + p24 ag Nonreactive Nonreactive Comment:Nonreactive for HIV- 1 antigen and HIV-1/HIV-2 antibodies. No laboratory evidence of HIV infection. If acute HIV infection is suspected, consider testing for HIV-1 RNA. Current interpretive data was last revised on 21. Blood 12/12/2024 1:51 PM CDT 12/12/2024 2:06 PM CDT us Chaz Beltrán MD PhD LAB MICROBIOLOGY - GENERAL [employer] Final Result Performing Organization Address City/State/[facility] Co de Phone Number [facility] [place] [address] * Hepatitis C antibody Blood (12/12/2024 1:51 PM CDT) Hep C Ab Nonreactive Nonreactive Comment:Antibodies to HCV no t detected. Does NOT exclude the possibility of recent exposure to HCV. Current interpretive data was last revised on 21 Blood 12/12/2024 1:51 PM CDT 12/12/2024 2:06 PM CDT Chaz Beltrán MD PhD LAB MICROBIOLOGY - GENERAL [employer] Final Result Performing Organization Address [facility] Co de Phone Number [facility] [place] [address] * Hepatitis B core antibody, total Blood (12/12/2024 1:51 PM CDT) Hep B core IgG/IgM Nonreactive Nonreactive Blood 12/12/2024 1:51 PM CDT 12/12/2024 2:06 PM CDT Chaz Beltrán MD PhD LAB MICROBIOLOGY - GENERAL [employer] Final Result Performing Organization Address City/[facility]/ZIP Co de Phone Number [facility] [place] [address] * Hepatitis C (HCV) RNA PCR, quantitative Blood (12/12/2024 1:51 PM CDT) [facility] HCV RNA result Not Detected [facility] Comment: The quantifiable range of this assay is 15 IU/mL to 100,000,000 IU/mL (1.18 log IU/mL to 8.00 log IU/mL). Testing was performed by the MICHAEL [id number] HCV Test ([employer] Testing performed at [facility] Current Interpretive Data was last revised on 2020 Blood 12/12/2024 1:51 PM CDT 12/12/2024 2:01 PM CDT Chaz Beltrán MD PhD LAB MICROBIOLOGY - [facility] Final Result Performing Organization Address City/[facility]/ZIP Co de Phone Number [facility] [place] [address] [facility] * hCG, urine, qualitative (12/12/2024 1:51 PM CDT) [facility] HCG, ur Negative Negative Urine 12/12/2024 1:51 PM CDT 12/12/2024 1:58 PM CDT Narrative [facility] - 12/12/2024 2:07 PM CDT Female, pre-menopausal, non-anuric Chaz Beltrán MD PhD LAB URINE ORDERABLES Final Resu lt Performing Organization Address City/[facility]/ZIP Co de Phone Number [facility] Department [place] [address] * Hepatitis B surface antibody (immune status) Blood (12/12/2024 1:51 PM CDT) [facility] HBsAb (immune status) Nonreactive Comment:This result is consi stent with a lack of immunity to Hepatitis B Virus when used in the setting of routine screening. Current interpretative data was last revised on 21 Blood 12/12/2024 1:51 PM CDT 12/12/2024 2:06 PM CDT us Chaz Beltrán MD PhD LAB MICROBIOLOGY - GENERAL TERRY WELCH Final Result Performing Organization Address City/[facility]/ZIP Co de Phone Number [facility] [place] [address] * Hepatitis B Surface Antigen Blood (12/12/2024 1:51 PM CDT) Pathologist [facility] HepBsAg Nonreactive Nonreactive Blood 12/12/2024 1:51 PM CDT 12/12/2024 2:06 PM CDT us Chaz Beltrán MD PhD LAB MICROBIOLOGY - GENERAL [employer] Final Result Performing Organization Address [facility] Co de Phone Number [facility] [place] [address] * Collection Task for HLA Antibody Screen (12/12/2024 12:53 PM CDT) [facility] HLA Antibody Screen by PRA Received Blood 12/12/2024 12:5 3 PM CDT 12/16/2024 10:10 AM CDT us Cleve Resendiz NP LAB BLOOD ORDERABLES Final Result Performing Organization Address [facility] Co de Phone Number [facility] [place] [address] * (ABNORMAL) eGFR (12/12/2024 12:53 PM CDT) [facility] eGFR 17(L) >=60 mL/min/1. 73 m2 Comment: Interpretive Data Reference Interval Normal >/= 90 mL/min/1.73m2 Mildly decreased* 60 - 89 mL/min/1.73m2 Mildly to moderately decreased 45 - 59 mL/min/1.73m2 Moderately to severely decreased 30 - 44 mL/min/1.73m2 Severely decreased 15 - 29 mL/min/1.73m2 Kidney Failure < 15 mL/min/1.73m2 *Relative to young adult level Estimated glomerular filtration rate is determined by the 2020 CKD-EPI equation recommended by the National Kidney Foundation (A Unifying Approach to GFR Estimation: Recommendations of the NKF-ASK Task Force on Reassessing the Inclusion of Race in Diagnosing Kidney Disease, JASN 2020). The CKD-EPI equation should not be used for patients with unstable renal function and has not been validated in children and those over 70. Current interpretive data was last reviewed 2021. Blood 12/12/2024 12:5 3 PM CDT 12/12/2024 1:00 PM CDT us Cleve Resendiz NP LAB BLOOD ORDERABLES Final Result [facility] [place] [address] * Differential, auto (12/12/2024 12:53 PM CDT) Neutrophil abs 2.60 1.50 - 6.50 K/cumm Imm gran abs 0.01 0.00 - 0.10 K/cumm [facility] Lymphocyte abs 1.47 0.80 - 3.30 K/cumm [facility] Monocyte abs 0.41 0.20 - 0.80 K/cumm [facility] Eosinophil abs 0.14 0.00 - 0.50 K/cumm [facility] Basophil abs 0.01 0.00 - 0.10 K/cumm [facility] Neutrophil pct 56.1 % [facility] Comment: Interpretive Data Percent cell count reference ranges are not reported, since discordance with absolute values may lead to misinterpretation of CBC data. Current Interpretive Data was last revised on 2017. Imm gran pct 0.2 % [facility] Comment: Interpretive Data Percent cell count reference ranges are not reported, since discordance with absolute values may lead to misinterpretation of CBC data. Current Interpretive Data was last revised on 2017. Lymphocyte pct 31.7 % [facility] Comment: Interpretive Data Percent cell count reference ranges are not reported, since discordance with absolute values may lead to misinterpretation of CBC data. Current Interpretive Data was last revised on 2017. Monocyte pct 8.8 % [facility] Comment: Interpretive Data Percent cell count reference ranges are not reported, since discordance with absolute values may lead to misinterpretation of CBC data. Current Interpretive Data was last revised on 2017. Eosinophil pct 3.0 % [facility] Comment: Interpretive Data Percent cell count reference ranges are not reported, since discordance with absolute values may lead to misinterpretation of CBC data. Current Interpretive Data was last revised on 2017. Basophil pct 0.2 % [facility] Comment: Interpretive Data Percent cell count reference ranges are not reported, since discordance with absolute values may lead to misinterpretation of CBC data. Current Interpretive Data was last revised on 2017. Blood 12/12/2024 12:5 3 PM CDT 12/12/2024 1:00 PM CDT us Cleve Resendiz SLEEP TECHNOLOGIST LAB BLOOD ORDERABLES Final Result Performing Organization Address City/[facility]/ZIP Co de Phone Number [facility] Department [place] [address] * (ABNORMAL) Iron profile w/ IBC (12/12/2024 12:53 PM CDT) [facility] Iron 42 35 - 145 mcg/dL TIBC 253 250 - 400 mcg/dL [facility] Transferrin saturation 17(L) 20 - 50 % [facility] Blood 12/12/2024 12:5 3 PM CDT 12/12/2024 1:00 PM CDT us Chaz Beltrán MD PhD LAB BLOOD ORDERABLES Final Resu lt Performing Organization Address City/[facility]/ZIP Co de Phone Number [facility] Department [place] [address] * (ABNORMAL) CBC with auto differential (12/12/2024 12:53 PM CDT) WBC 4.64 3.80 - 9.90 K/cumm Hgb 11.8(L) 11.9 - 15.5 g/dL [facility] Hct 34.9(L) 35.6 - 45.5 % [facility] Plt 161 150 - 400 K/cumm [facility] MPV 11.0 9.1 - 12.3 fL [facility] RBC 3.84(L) 3.90 - 5.20 M/cumm [facility] MCV 90.9 81.3 - 96.4 fL [facility] MCH 30.7 27.1 - 33.3 pg [facility] MCHC 33.8 32.3 - 35.7 g/dL [facility] RDW CV 12.6 11.1 - 14.9 % [facility] RDW SD 41.2 35.7 - 48.1 fL [facility] NRBC abs 0.00 0.00 - 0.01 K/cumm [facility] Blood 12/12/2024 12:5 3 PM CDT 12/12/2024 1:00 PM CDT Cleve Resendiz NP LAB BLOOD ORDERABLES Final Result Performing Organization Address City/[facility] Co de Phone Number [facility] [place] [place] [address] * aPTT (12/12/2024 12:53 PM CDT) [facility] aPTT 31 26 - 38 sec Comment: Interpretive Data Heparin therapeutic range: 66.0 - 100.0 seconds. Range based on correlation with therapeutic heparin activity range of 0.3 - 0.7 Units/mL. Current interpretive data was last revised on 2023. Blood 12/12/2024 12:5 3 PM CDT 12/12/2024 1:03 PM CDT Cleve Resendiz NP LAB BLOOD ORDERABLES Final Result Performing Organization Address City/[facility]/ZIP Co de Phone Number [facility] [place] [address] * Protime-INR (12/12/2024 12:53 PM CDT) PT 10.5 10.2 - 13.5 sec INR 0.93 0.90 - 1.20 [facility] Comment: Interpretive data Oral anticoagulant therapeutic ranges: Venous thromboembolism prophylaxis or treatment: 2.0-3.0 CARDIOLOGY Standard range: 2.0-3.0 High-intensity range: 2.5-3.5 Refer to indication-specific guidelines for appropriate target ranges for prosthetic heart valve replacement. Current interpretive data was last revised on 2019. Blood 12/12/2024 12:5 3 PM CDT 12/12/2024 1:03 PM CDT Cleve Resendiz NP LAB BLOOD ORDERABLES Final Result Performing Organization Address City/[facility]/[place] [address] * Type and screen (12/12/2024 12:53 PM CDT) Pathologist [facility] ABO Rh A Positive Jesus, indirect Negative [facility] Blood 12/12/2024 12:5 3 PM CDT 12/12/2024 1:10 PM CDT Narrative [facility] - 12/12/2024 1:58 PM CDT Has the patient had Daratumumab or Isatuximab in the past 6 months?->Unknown Cleve Resendiz NP LAB BLOOD BANK TEST [place] [address] * Urine culture Urine, bladder (12/12/2024 12:53 PM CDT) Report Final Report: Less than 100,000 colonies/mL (clinically insignificant growth based on current clinical standards) Organism (CLINICALLY INSIGNIFICANT GROWTH [facility] Urine, bladder 12/12/2024 12 :53 PM CDT 12/12/2024 1:06 PM CDT Narrative [facility] - 12/13/2024 2:02 PM CDT Indications for Culture:->Other (specify) Other Indication:->s/p kid txp. Testing performed by [facility] ([phone]) us Cleve Resendiz NP LAB MICROBIOLOGY - GENERAL ORDERABLES Final Result Performing Organization Address City/[facility] Co de Phone Number [facility] [place] [address] * (ABNORMAL) Uric acid (12/12/2024 12:53 PM CDT) Pathologist [facility] Uric acid 8.6(H) 2.5 - 7.0 mg/dL Blood 12/12/2024 12:5 3 PM CDT 12/12/2024 1:00 PM CDT Chaz Beltrán MD PhD LAB BLOOD ORDERABLES Final Resu lt Performing Organization Address [facility] Co de Phone Number [facility] Department [place] [address] * Phosphorus (12/12/2024 12:53 PM CDT) Pathologist [facility] Phosphorus, pl 3.6 2.3 - 4.5 mg/dL Blood 12/12/2024 12:5 3 PM CDT 12/12/2024 1:00 PM CDT us Cleve Resendiz NP LAB BLOOD ORDERABLES Final Result Performing Organization Address [facility] Co de Phone Number [facility] [place] [address] * Hemoglobin A1c (12/12/2024 12:53 PM CDT) Hgb A1C 5.6 4.0 - 5.6 % Estimated Average Glucose 114 mg/dL [facility] Comment: The ADA recommends reporting an estimated Average Glucose (eAG) with all Hemoglobin A1c results using the equation derived from a study of 507 normal and diabetic adults. Minority populations were underrepresented and children were not included. (Diabetes Care 2020; 43(S1): S66-S76). The eAG is not equivalent to a fasting glucose. Blood 12/12/2024 12:5 3 PM CDT 12/12/2024 1:05 PM CDT Chaz Beltrán MD PhD LAB BLOOD ORDERABLES Final Resu lt Performing Organization Address [facility] Co de Phone Number [facility] Department [place] [address] * Ferritin (12/12/2024 12:53 PM CDT) Ferritin 108 13 - 150 ng/mL Blood 12/12/2024 12:5 3 PM CDT 12/12/2024 1:00 PM CDT Chaz Beltrán MD PhD LAB BLOOD ORDERABLES Final Resu lt Performing Organization Address [facility] de Phone Number [facility] [place] [address] * Lipid panel (12/12/2024 12:53 PM CDT) Cholesterol 178 30 - 199 mg/dL Comment: Interpretive Data Ages < or = 19 years Acceptable: <170 mg/dL Borderline high: 170-199 mg/dL High: >or= 200 mg/dL Ages > or = 20 years Desirable: <200 mg/dL Borderline high: 200-239 mg/dL High: >or= 240 mg/dL Literature References: 1. Expert Panel on Integrated Guidelines for Cardiovascular Health and Risk Reduction in Children and Adolescents. Pediatrics 2011;128:S213 2. NCEP Expert Panel. Circulation 2004;110:227 Current Interpretive Data was last revised on 2017. Triglycerides 111 <=149 mg/dL [facility] Comment: Interpretive Data Ages < or = 9 years Acceptable: <75 mg/dL Borderline high: 75-99 mg/dL High: >or= 100 mg/dL Ages 10 to 20 years Acceptable: <90 mg/dL Borderline high: 90-129 mg/dL High: >or= 130 mg/dL Ages > or = 20 years Desirable: <150 mg/dL Borderline high: 150-199 mg/dL High: 200-499 mg/dL Very high: >or= 499 mg/dL Literature References: 1. Expert Panel on Integrated Guidelines for Cardiovascular Health and Risk Reduction in Children and Adolescents. Pediatrics 2011;128:S213 2. NCEP Expert Panel. Circulation 2004;110:227 Current Interpretive Data was last revised on 2017. HDL 59 >=40 mg/dL [facility] Comment: Interpretive Data Ages < or = 19 years Acceptable: >45 mg/dL Borderline low: 40-45 mg/dL Low: <40 mg/dL Ages > or = 20 years Desirable: >or= 60 mg/dL Low: <40 mg/dL Literature References: 1. Expert Panel on Integrated Guidelines for Cardiovascular Health and Risk Reduction in Children and Adolescents. Pediatrics 2011;128:S213 2. NCEP Expert Panel. Circulation 2004;110:227 Current Interpretive Data was last revised on 2017. LDL, calculated 99 <=129 mg/dL [facility] Comment: Interpretive Data Ages < or = 19 years Acceptable: <110 mg/dL Borderline high: 110-129 mg/dL High: >or= 130 mg/dL Ages > or = 20 years Optimal: <100 mg/dL Near optimal: 100-129 mg/dL Borderline high: 130-159 mg/dL High: >160 mg/dL Calculated using the Price LDL-C estimating equation. This equation was implemented on 2023. Prior to this date LDL-C was estimated using the Friedewald equation. Literature References: 1. Expert Panel on Integrated Guidelines for Cardiovascular Health and Risk Reduction in Children and Adolescents. Pediatrics 2011;128:S213 2. NCEP Expert Panel. Circulation 2004;110:227 3. Price Jorgensen et al. MARGE Cardiol. 2020 August 07;5(5):540-548. doi: 10.1001/[email or web address].2020.0013 Current Interpretive Data was last revised on 2023. Non-HDL Cholesterol 119 mg/dL [facility] Comment: Interpretive Data Ages < or = 19 years Acceptable: <120 mg/dL Borderline high: 120-144 mg/dL High: >145 mg/dL Ages > or = 20 years When triglycerides are >200 mg/dL, Non-HDL cholesterol is a secondary target of therapy with treatment goals that are 30 mg/dL greater than the LDL cholesterol target. Literature References: 1. Expert Panel on Integrated Guidelines for Cardiovascular Health and Risk Reduction in Children and Adolescents. Pediatrics 2011;128:S213 2. NCEP Expert Panel. Circulation 2004;110:227 Current Interpretive Data was last revised on 2017. Chol/HDL ratio 3 [facility] Blood 12/12/2024 12:5 3 PM CDT 12/12/2024 1:00 PM CDT Chaz Beltrán MD PhD LAB BLOOD ORDERABLES Final Resu lt [facility] Department [place] [address] * (ABNORMAL) Comprehensive metabolic panel (12/12/2024 12:53 PM CDT) Sodium 144 135 - 145 mmol/L Potassium, pl 3.5 3.3 - 4.9 mmol/L [facility] Chloride 103 97 - 110 mmol/L [facility] CO2 29 22 - 32 mmol/L [facility] Anion gap 12 2 - 15 mmol/L [facility] BUN 38(H) 6 - 25 mg/dL [facility] Creatinine 3.17(H) 0.60 - 1.10 mg/dL [facility] Glucose 100 70 - 199 mg/dL [facility] Comment: Interpretive Data Fasting glucose >/= 126 mg/dl is diagnostic for diabetes. Fasting is defined as no caloric intake for at least 8 hours. Fasting glucose between 100 mg/dl to 125 mg/dl is diagnostic of prediabetes. In a patient with classic symptoms of hyperglycemia or hyperglycemic crisis, a random glucose >/= 200 mg/dl is diagnostic for diabetes. In the absence of unequivocal hyperglycemia, results should be confirmed by repeat testing. The classification and Diagnosis of Diabetes Diabetes Care 2021; 46: S19-S40. Current interpretive data was last revised 2022. Calcium 10.1 8.5 - 10.3 mg/dL [facility] Bilirubin, total 0.3 0.1 - 1.2 mg/dL [facility] Protein, pl 7.4 6.5 - 8.5 g/dL [facility] Albumin 4.4 3.5 - 5.0 g/dL [facility] Alk phos 57 40 - 130 Units/L [facility] ALT 18 7 - 45 Units/L [facility] AST 22 10 - 45 Units/L [facility] Blood 12/12/2024 12:5 3 PM CDT 12/12/2024 1:00 PM CDT us Cleve Resendiz NP LAB BLOOD ORDERABLES Final Result [facility] Department [place] [address] * ECG 12 lead (12/12/2024 12:31 PM CDT) Ventricular Rate EKG/Min 70 BPM [facility] Atrial Rate 70 BPM [facility] PA-Interval (MSEC) 160 ms [facility] QRS-Interval (MSEC) 80 ms [facility] QT-Interval (MSEC) 414 ms [facility] QTc 447 ms [facility] P [place] 44 degrees [facility] R [place] -30 degrees [facility] T [place] 12 degrees [facility] Diagnosis Normal sinus rhythm Left axis deviation Low voltage QRS Inferior infarct , age undetermined Cannot rule out Anteroseptal infarct (cited on or before 10-NOV-2024) Abnormal ECG When compared with ECG of 10-NOV-2024 08:26, QRS axis Shifted left Inferior infarct is now Present Confirmed by MALENA COLE M.D ([id number]) on 12/12/2024 2:37:13 PM [facility] 12/12/2024 12:3 1 PM CDT 12/12/2024 2:37 PM CDT Cleve Resendiz NP ECG ORDERABLES Final Resul t Performing Organization Address [facility] de Phone Number [facility] * HLA Crossmatch Report (12/12/2024 12:29 PM CDT) Cleve Resendiz NP LAB BLOOD ORDERABLES Final Result * HLA Crossmatch, ALLO (12/12/2024 12:29 PM CDT) Blood 12/12/2024 12:2 9 PM CDT 12/15/2024 6:05 AM CDT Narrative [facility] - 12/15/2024 6:05 AM CDT Cleve Resendiz NP LAB BLOOD ORDERABLES Final Result Performing Organization Address [facility] de Phone Number [facility] * HLA Antibody Screen by PRA or SAB per Schedule (Class I and Class II) (12/12/2024 12:29 PM CDT) Blood 12/12/2024 12:2 9 PM CDT Narrative [facility] - AUCTION BLOCK CLERK Sample received in lab. Single Antigen Antibody Screen and PRA Screen ordered. Cleve Resendiz NP LAB BLOOD ORDERABLES Final Result Performing Organization Address [facility] de Phone Number [facility] * HLA Antibody Screen - PRA (Class I and Class II) (12/12/2024 12:29 PM CDT) Class I Treatment Untreated [facility] Class I Dilution 1:1 [facility] Class I Tested Date 12/12/2024 [facility] Class I Result Positive [facility] Class I Percent Positive 54 [facility] Class II Treatment Untreated [facility] Class II Dilution 1:1 [facility] Class II Tested Date 12/12/2024 [facility] Class II Result Positive [facility] Class II Percent Positive 89 [facility] 12/12/2024 12:2 9 PM CDT 12/15/2024 8:14 AM CDT Narrative [facility] - 12/15/2024 8:14 AM CDT PRA (panel reactive antibody) HLA antibody screen is performed on serum samples using a method developed and validated by the [facility] HLA laboratory based on an FDA- approved IVD kit (LABScreen PRA, [employer], [place], [place]). Interpretive comments: The percentage of beads with MFI > 750 is reported, which indicates the percentage of donor population estimated to be incompatible with the patient tested. PRA > 0% is consistent with alloimmunization to HLA. Testing performed at the [facility], [address] [place] [address], 5th floor, [place], [address]. [place] # [id number]. Mindi Sarabia, Ph.D., Educational Technology Coordinator, HLA Laboratory Georges Lopez M.D., Ph.D., General Manager [employer], HLA Laboratory Zenia Bojorquez, Ph.D., CLIA General Manager [employer], [facility] Current methodology and interpretive comments last revised on 08/01/2017. Cleve Resendiz NP LAB BLOOD ORDERABLES Final Result [facility] * HLA Antibody Screen - SAB (Class I and Class II) (12/12/2024 12:29 PM CDT) Class I Treatment EDTA [facility] Class I Dilution 1:1 [facility] Class I Tested Date 12/12/2024 [facility] Class I Result Positive [facility] Class I CPRA 88 [facility] Class I Increased Risk A23, A24; B53; Cw2, Cw18 [facility] Class I Moderate Risk A1, A25, A32, A34, A66; B35, B38, B51, B57, B58, B59, B63; Cw4, Cw5, Cw6, Cw15, Cw17 [facility] Class I Low Risk A3, A11, A26, A36, A43, A80; B49, B54, B77 [facility] Class II Treatment EDTA [facility] Class II Dilution 1:1 [facility] Class II Tested Date 12/12/2024 [facility] Class II Result Positive [facility] Class II CPRA 95 [facility] Class II Increased Risk DR4, DR8, DR11, DR15, DR16; DQ7, DQ8, DQ9 [facility] Class II Moderate Risk DR1, DR9, DR10, DR51; DPB1*01:01, DPB1*03:01, DPB1*06:01, DPB1*09:01, DPB1*11:01, DPB1*14:01, DPB1*17:01, DPB1*20:01 [facility] Class II Low Risk DR103, DR7, DR52; DPB1*01:01, DPB1*05:01, DPB1*06:01, DPB1*10:01, DPB1*11:01, DPB1*13:01, DPB1*19:01 [facility] Class II Reportable Comments Allelic antibody not listed: DRB1*13:03 (alloantibody , increased risk), patient is DRB1*13:01 per SSO. [facility] 12/12/2024 12:2 9 PM CDT 12/15/2024 7:53 AM CDT Narrative [facility] - 12/15/2024 7:53 AM CDT Single-antigen HLA antibody screen is performed on serum samples using a method developed and validated by the [facility] HLA laboratory based on an FDA-approved IVD kit (LABScreen Single-Antigen, [facility], [place], [place]). All patient serum samples are pretreated with EDTA before the screen to prevent complement interference. Additional serum treatments, such as adsorption and DTT treatment, may be performed as indicated. Interpretive comments: Low risk: MFI 7494-1008. Moderate risk: MFI 6079-9299. Increased risk: MFI >/= 5000. The presence of an antigen in two or more risk categories may indicate a mixed reactivity pattern among beads of multiple subtypes. Preformed donor-specific antibodies (DSA) with MFI above 2000 are predictive of positive cytotoxicity crossmatch (Hum Immunol 2010;71:268-73. Hum Immunol 2012;73:497- 604) and carry a higher risk of humoral rejection. For our solid-organ transplant programs, unacceptable antigens (UA) for transplant candidates are defined by MFI >/= 2000 with some exceptions. UA are listed at UNOS and used to generate calculated PRA (cPRA) rounded to the nearest integer. In the post-transplant setting, MFI values from donor-specific beads are listed in the DSA report to provide additional information. It is important to note that this test is approved as a qualitative test and the MFI values are not strictly linear. For platelet refractoriness: An empirical cutoff value of MFI >/= 2000 has been used in our center; a higher cutoff value such as 5000 may also be suitable for highly sensitized patients to prioritize the antigens to avoid. Testing performed at the [facility], [address] [place] [address], 5th floor, [place], [address]. CLIA # [id number]. Mindi Sarabia, Ph.D., Educational Technology Coordinator, HLA Laboratory Georges Lopez M.D., Ph.D., General Manager [employer], HLA Laboratory Zenia Bojorquez, Ph.D., CLIA General Manager [employer], [facility] Current methodology and interpretive comments last revised on 05/04/2022. us Cleve Resendiz NP LAB BLOOD ORDERABLES Final Result [facility] * HLA Virtual Crossmatch Recipient Report (12/10/2024 9:35 PM CDT) us Keith Root MD LAB BLOOD ORDERABLES Final Result * HLA Virtual Crossmatch Recipient Report (12/04/2024 3:16 PM CDT) us Joni Jo MD LAB BLOOD ORDERABLES F inal Result * Combined F2 (Prothrombin) and F5 (Factor V Leiden) Gene Mutations (11/12/2024 1:23 PM CDT) [facility] Factor V Leiden F5 Normal Normal [facility] Comment:Testing performed by : [facility], [address] [facility] [place]., [address] Factor V Leiden Interpretation The patient is negative for the Factor V Leiden mutation (F5:c.1601G>A, p.R534Q) with two copies of the normal allele. DAY Comment:Testing performed by : [facility], [address] [place]., [address] Prothrombin F2 Mutation Normal Normal DAY Comment:Testing performed by : [facility], [address] [place]., [address] Prothrombin F2 Interpretation The patient is negative for the prothrombin gene mutation (F2 c.*97G>A ([id number])) with two copies of the normal allele). DAY Comment:Testing performed by : [facility], [address] [place]., [address] FVL and Prothrombin Specimen Blood DAY Comment:Testing performed by : [facility], [address] [place] [address], [address] FVL and Prothrombin Result Review Final report reviewed by: GIBSON Aguilera([facility]) Automated Weaver, on 11/17/2024 12:49:11 CDT. DAY Comment: Interpretive Data Testing was performed simultaneously for the presence of the F5:c.1601G>A(R534Q) (aka Factor V Leiden) mutation and the F2:c.*97G>A mutation. The presence of either of these F5 or F2 variants increases the relative risk of venous thromboembolism (VTE) but is not predictive of a thrombotic event. The population allele frequency for F5:c.1601G>A(R534Q) is up to 5% in persons of ancestry and 1.2% in those with ancestry. The reported frequency among other ethnicities is less than 3%. The increased risk of VTE for adults is 4-8 fold for F5 heterozygotes and 80-fold higher for F5 homozygotes. The population allele frequency for the F2:c.*97G>A mutation is approximately 1-3% in persons of ancestry and 0.3% in those with ancestry. The reported frequency among other ethnicities is less than 2%. The increased risk of VTE for adults is 2-5 fold for F2 heterozygotes and is higher, though not well-defined, for F2 homozygotes. The risk of VTE in individuals heterozygous for both F2 & F5 is 20-fold higher. Absence of these mutations does not indicate a lack of risk for VTE. Genetic counseling is recommended. Method: This assay utilizes the Mclowd Xpert FII & FV qualitative in vitro diagnostic genotyping test for the detection of targeted FV and F2 alleles from sodium citrate or EDTA anticoagulated whole blood. This test is performed on the Optovue System which automates and integrates sample purification, nucleic acid amplification, and detection of the target sequence in whole blood using real- time Polymerase Chain Reaction (PCR) assays based on Scorpion PCR technology. Note: F5 (NM_000130.5):c.1601G>A, R534Q or Factor V Leiden is also referred to as c.1691G>A, p.R506Q in the literature. FDA statement: The Mclowd Xpert FII & FV qualitative in vitro diagnostic genotyping test for use on specimens from adult populations. The hull and deck remover did not evaluate testing on samples from pediatric patients (<18 years of age). The performance characteristics of this test on specimens from pediatric patients have been assessed by the [facility] and deemed acceptable for clinical reporting. The Mclowd Xpert FII & FV genotyping test is FDA-cleared for testing unprocessed peripheral blood specimens containing either EDTA or sodium citrate. Processing of specimens submitted for reflex testing requires modifications from the hull and deck remover's instructions. The performance characteristics of those modifications, if necessary, have been determined by [facility] in a manner consistent with CLIA requirements. Limitations and interfering substances: The performance of the Xpert Factor II & Factor V Assay was validated using the procedures provided in the package insert only. Results from the Xpert Factor II & Factor V Assay should be interpreted in conjunction with other laboratory and clinical data available to the clinician. Rare Factor V variants including but not limited to: F5:c.1599G>A, F5:c.1602A>C, F5:c.1606A>G, rare Factor II mutations and any additional SNPs in the probe binding region, may interfere with the target detection and yield an invalid result. Patients on heparin therapy and receiving blood transfusions may have interfering substances that potentially lead to invalid or erroneous results. References: 1. CepTrustifiid Xpert Factor II and Factor V package insert. [id number], Rev. B. November 2016. 2. Dakota WW, et al; MG Factor V Leiden Working Group. Khadijah Med. 2001. 3:139- 48. 3. MIAH Rodas, et al. Nature. 2020. 581:434 4 43 4. Melissa DANIELSON. Factor V Leiden Thrombophilia. 1998August 20 [Updated 2017Apr 12]. Available from: https://www.ncbi.nlm.nih.gov/books/YLL9438/ 5. Dena PM, et al. N Engl J Med. 1995. 332:912-17. 6. Vini GUTIÉRREZ and Jaymie PH. J Thromb Haemost. 2009. 7 Suppl 1:301 4 . 7. Kayden S., et al. Khadijah Med. 2018. 20:1489 1 498 This test was performed at: [facility], [facility], [facility]#[id number], Zenia Bojorquez, Ph.D., [place], [address], [place] Current interpretive data was last revised 2022. Testing performed by: [facility], [address] [place] [address]., [address] Blood 11/12/2024 1:23 PM CDT 11/13/2024 8:30 AM CDT us Chastity Wick MD LAB GENETIC TESTING Final Resul t [facility] [place] [address] [facility] Department [place] [address] [facility] * Lupus Anticoagulant Panel plus Reflexes (11/12/2024 1:23 PM CDT) PT 11.0 10.2 - 13.5 sec Comment:Testing performed by : [facility], [address] [place] [address]., [address] INR 0.97 0.90 - 1.20 [facility] [place] Comment: Interpretive data Oral anticoagulant therapeutic ranges: Venous thromboembolism prophylaxis or treatment: 2.0-3.0 CARDIOLOGY Standard range: 2.0-3.0 High-intensity range: 2.5-3.5 Refer to indication-specific guidelines for appropriate target ranges for prosthetic heart valve replacement. Current interpretive data was last revised on 2019. Testing performed by: [facility], [address] [place]., [address] aPTT 28 26 - 38 sec DAY Comment: Interpretive Data Heparin therapeutic range: 66.0 - 100.0 seconds. Range based on correlation with therapeutic heparin activity range of 0.3 - 0.7 Units/mL. Current interpretive data was last revised on 2023. Testing performed by: [facility], [address] [place]., [address] DRVVT screen ratio 1.04 0.00 - 1.20 Ratio DAY Comment:Testing performed by : [facility], [address] [place]., [address] SCT Screen Ratio 1.00 0.00 - 1.16 Ratio DAY Comment:Testing performed by : [facility], [address] [place]., [address] Lupus anticoagulant, interp Negative DAY Comment: Interpretive data Lupus anticoagulants (LA) are acquired autoantibodies that interfere with invitro clotting in a phospholipid-dependent manner and are associated with an increased risk of thromboembolic events and complications. Routine APTT and PT reagents are not sensitive to inhibition by LA, and should not be used as screening tests. The laboratory follows ISTH 2009 guidelines (Pengo, 2009) for LA testing and interpretation: Two sensitive methods performed in parallel improve sensitivity. One activates the intrinsic pathway (Silica-APTT) and one activates the common pathway (dilute Scottie's viper venom time - dRVVT). Each method begins with a SCREEN step, and if neither is prolonged, no further testing is performed and the interpretation is: NO LA DETECTED. If either screening test is prolonged, then additional steps are performed to provide specificity. A POSITIVE LA result occurs if either one or both tests produce a positive CONFIRM result. An INDETERMINATE result means results cannot distinguish between coagulopathy and a weak LA. Consider retesting when PT/INR is less prolonged, if clinical indicated. To support laboratory confirmation of antiphospholipid syndrome, persistence of a positive LA result should be verified by repeat testing at least 12 weeks later (Sunday, 2006). Prior to LA testing, the laboratory screens patient plasma samples for evidence of heparin contamination, which is neutralized prior to LA testing, and the following interfering conditions which require canceling LA testing: INR >3.0, fibrinogen < 100 mg/dl, use of direct oral or IV anticoagulants other than heparin. References: 1) Barry V, Saul A, Kandice JH, Oraly TL, Kourtney M, De Domingo PG. Update of the guidelines for lupus anticoagulant detection. J Thromb Haemost. 2009; 7:3419-3377. 2. Sunday Lange et al. International consensus statement on an update of the classification criteria for definite antiphospholipid syndrome (APS). J Thromb Haemost. 2006; 4:295-306. Current interpretive data was last revised on 2018 Testing performed by: [facility], [address] [place]., [address] Blood 11/12/2024 1:23 PM CDT 11/12/2024 3:31 PM CDT us Chastity Wick MD LAB BLOOD ORDERABLES Final Resu lt [facility] [address] [facility] Department [place] [address] * Beta 2 glycoprotein IgM Ab (11/12/2024 1:23 PM CDT) [facility] Beta-2 glycoprotein I, IgM <1.5 <=19.9 units/mL Comment: Interpretive Data Negative: <20 U/mL Positive: > or = 20 U/mL Beta- 2 glycoprotein 1 (Beta-2 GP1) antibodies are a more specific marker of thrombotic risk. It is expected that some samples will be ACL positive and Beta- 2 GP1 negative. In order to improve specificity, the International Congress on Antiphospholipid Antibodies recommends Beta-2 GP1 antibodies of IgG or IgM isotype (> the 99th percentile), obtained twice, at least 12 weeks apart, to support a diagnosis of antiphospholipid syndrome. The cutoff for this assay was developed from data based on the 99th percentile. The Beta-2 GP1 IgM test can produce false positive results due to cross-reactivity with Rheumatoid factor. These results were obtained with the [employer] Generation [employer]inglex 2200 System. Beta-2 GP1 IgM values obtained with different manufacturers' assay methods may not be used interchangeably. Current interpretive data was last revised on 2016. Testing performed by: [facility], [address] [place] [address]., [address] Blood 11/12/2024 1:23 PM CDT 11/12/2024 3:31 PM CDT us Chastity Wick MD LAB BLOOD ORDERABLES Final Resu lt [id number] [address] [facility] Department [place] [address] * Beta 2 glycoprotein IgG Ab (11/12/2024 1:23 PM CDT) [facility] Beta-2 glycoprotein I, IgG <1.4 <=19.9 units/mL Comment: Interpretive Data Negative: <20 U/mL Positive: > or = 20 U/mL Beta-2 glycoprotein 1 (Beta-2 GP1) antibodies are a more specific marker of thrombotic risk. It is expected that some samples will be ACL positive and Beta- 2 [id number]. In order to improve specificity, the International Congress on Antiphospholipid Antibodies recommends Beta-2 GP1 antibodies of IgG or IgM isotype (> the 99th percentile), obtained twice, at least 12 weeks apart, to support a diagnosis of antiphospholipid syndrome. The cutoff for this assay was developed from data based on the 99th percentile. These results were obtained with the [employer] Bio[employer]lex 2200 System. Beta 2GP1 IgG values obtained with different manufacturers' assay methods may not be used interchangeably. Current interpretive data was last revised on 2016. Testing performed by: [facility], [address] [place] [address]., [address] Blood 11/12/2024 1:23 PM CDT 11/12/2024 3:31 PM CDT Chastity Wick MD LAB BLOOD ORDERABLES Final Resu lt Performing Organization Address [facility] Co de Phone Number DAY [address] [place] [address] * Protein S antigen, free (11/12/2024 1:23 PM CDT) Protein S, free 64 55 - 150 % Comment:Testing performed by : [facility], [address] [place] [address]., [address] Blood 11/12/2024 1:23 PM CDT 11/12/2024 3:31 PM CDT Chastity Wick MD LAB BLOOD ORDERABLES Final Resu lt Performing Organization Address [facility] de Phone Number [address] [address] * Protein C activity (11/12/2024 1:23 PM CDT) [facility] Protein C 110 60 - 150 % Comment:Testing performed by : [facility], [address] [place] [address]., [address] Blood 11/12/2024 1:23 PM CDT 11/12/2024 3:31 PM CDT Chastity Wick MD LAB BLOOD ORDERABLES Final Resu lt Performing Organization Address [facility] Co de Phone Number [address] [place] [address] * Cardiolipin antibody, IgG and IgM (11/12/2024 1:23 PM CDT) Cardiolipin, IgG <1.6 <=19.9 GPL U/mL Comment: Interpretive Data Negative: <20 GPL U/mL Positive: > or = 20 GPL U/mL Anticardiolipin antibodies are associated with certain clinical events including unexplained arterial and venous thromboemboli, and unexplained morbidity. However, detection of low levels of anticardiolipin antibodies occurs in both healthy individuals and patients with co-morbidities not associated with the antiphospholipid antibody (APA) syndrome including inflammatory and infectious conditions. In order to improve specificity, the International Congress on Antiphospholipid Antibodies recommends ACL antibodies of IgG or IgM isotype present in medium or high titer (e.g. > 40 GPL, or >the 99th percentile), on two or more occasions, at least 12 weeks apart, to support a diagnosis of antiphospholipid syndrome. The cutoff for this assay was developed from data based on the 99th percentile. In addition, the International Congress on Antiphospholipid Antibodies does not recommend testing for IgA GUILLERMO. These results were obtained with the Popdeem 2200 System. Cardiolipin IgG values obtained with different manufacturers' assay methods may not be used interchangeably. Current interpretive data was last revised on 2016. Testing performed by: [facility], [address] [place]., [address] Cardiolipin, IgM <1.5 <=19.9 MPL U/mL [facility] [place] Comment: Interpretive Data Negative: <20 MPL U/mL Positive: > or = 20 MPL U/mL Anticardiolipin antibodies are associated with certain clinical events including unexplained arterial and venous thromboemboli, and unexplained morbidity. However, detection of low levels of anticardiolipin antibodies occurs in both healthy individuals and patients with co-morbidities not associated with the antiphospholipid antibody (APA) syndrome including inflammatory and infectious conditions. In order to improve specificity, the International Congress on Antiphospholipid Antibodies recommends ACL antibodies of IgG or IgM isotype present in medium or high titer (e.g. > 40 MPL, or >the 99th percentile), on two or more occasions, at least 12 weeks apart, to support a diagnosis of antiphospholipid syndrome. The cutoff for this assay was developed from data based on the 99th percentile. In addition, the International Congress on Antiphospholipid Antibodies does not recommend testing for IgA GUILLERMO. The ACL IgM test can produce false positive results due to cross-reactivity with Rheumatoid factor, dsDNA or certain infectious disease antibodies. These results were obtained with the Popdeem 2200 System. Cardiolipin IgM values obtained with different manufacturers' assay methods may not be used interchangeably. Current interpretive data was last revised on 2016. Testing performed by: [facility], [address] [place]., [address] Blood 11/12/2024 1:23 PM CDT 11/12/2024 3:31 PM CDT Chastity Wick MD LAB BLOOD ORDERABLES Final Resu lt Performing Organization Address [facility] Co de Phone Number DAY [address] [place] [address] * Antithrombin Activity (11/12/2024 1:23 PM CDT) Antithrombin III 119 80 - 125 % Comment: Interpretive Data High concentrations of anti-Xa direct oral anticoagulants can cause Antithrombin activities to be falsely elevated. Current interpretive data was last reviewed 2023 Testing performed by: [facility], [address] [place]., [address] Blood 11/12/2024 1:23 PM CDT 11/12/2024 3:31 PM CDT Chastity Wick MD LAB BLOOD ORDERABLES Final Resu lt Performing Organization Address [facility] Co de Phone Number DAY [facility] [place] [address] * HLA Solid Organ Typing Report (11/11/2024 12:09 PM CDT) Chastity Wick MD LAB GENETIC TESTING Final Resul t * STRESS ECHO EXERCISE W DOPPLER/CF W CONTRAST (11/10/2024 11:47 AM CDT) EF Mod BP 72 % CONS SCIMAGE Anatomical Region Laterality Modality Ultrasound 11/10/2024 10:3 0 AM CDT Narrative 11/10/2024 12:10 PM CDT [facility] Cardiac [place] [address] [place] [address] Exercise Stress Transthoracic Echocardiographic Report Patient Name: NADIA JEWELL L : 1970 (54y 3m) Gender: F Study Date: 11/10/2024 10:30:00 AM Ht(Inch): 64 Wt(Lb): 158.07 BSA: 1.8 Calibration Technician: Deepika Diamond RDCS Location: [facility] Order Provider: CHASTITY WICK Heart Rate: 63 BMI: 27.13 Ref Provider: CHASTITY WICK PROCEDURES: Stress Echo Report: Stress Echocardiography transthoracic, real-time with image documentation (2D), includes M-Mode recording, Doppler Echocardiography and Doppler color flow when performed, during treadmill exercise induced peak heart rate with interpretation and report; including performance of continuous electrocardiographic monitoring, with physician supervision. Additional Procedures: Ultrasound enhancing agent (echo contrast) was administered. Contrast: 0.4 ml Optison Administered, (2.6 ml wasted). Performed By: Melani Montaño RN. Supervising Physician: Dr. Jose Martin Aguilar. Patient Assessment: The patient was NPO. Procedure Notes: IV Access Placement: right hand, right wrist, right forearm, right antecubital fossa, left hand, left wrist, left forearm, left antecubital fossa, left Upper Arm and. Catheter Size: 22 gauge. Patient has been given instructions and understands the test, consent obtained. Patient has been NPO for 4 hours. INDICATIONS: Pre non-cardiac procedure/surgery, Z01.818 Encounter for other preprocedural examination, and N18.4 Chronic kidney disease, stage 4 (severe). CONCLUSIONS: 1. Maximal stress echocardiogram NEGATIVE for myocardial ischemia. 2. Normal left ventricular cavity size based on volume index. Normal left ventricular systolic function. The Ejection Fraction (Bellamy's) is measured at 72 %. Normal diastolic function. The average global longitudinal strain is normal. 3. Resting Segmental Wall Motion Analysis: Total wall motion score is 1.00. There are no regional wall motion abnormalities. 4. Peak Segmental Wall Motion Analysis: Total wall motion score is 1.00. There are no regional wall motion abnormalities. 5. Exercise performance was good. 6. Normal right ventricular size. Normal right ventricular systolic function. TV S'= 0.18 m/s (normal function). 7. The estimated pulmonary artery systolic pressure is 20.0 mmHg. No pulm HTN. ATTESTATION: I have personally reviewed this study with a fellow in a teaching setting and attest to the findings and conclusions. - DISCLAIMER: The study images and the final report will be retained in the patient chart by the Echo Laboratory for the legally required time period. This chart constitutes the legal record of any testing performed. FINDINGS: Left Ventricle: Normal left ventricular cavity size based on volume index. Normal left ventricular systolic function. The Ejection Fraction (Bellamy's) is measured at 72 %. Normal diastolic function. The average global longitudinal strain is normal. The LV global strain is: -20.8 %. Right Ventricle: Normal right ventricular size. Normal right ventricular systolic function. TV S'= 0.18 m/s (normal function). Left Atrium: The left atrium is normal in size. Right Atrium: The right atrium is normal in size. Mitral Valve: Normal mitral valve structure. Mild mitral valve regurgitation. Aortic Valve: Normal trileaflet aortic valve. No aortic regurgitation. The mean transaortic gradient is 2 mmHg. The aortic valve area by the continuity equation (using VTI) is 3.57 cm2. Aortic valve dimensionless index is 0.96. Tricuspid Valve: Normal tricuspid valve structure. Mild tricuspid regurgitation. The estimated pulmonary artery systolic pressure is 20.0 mmHg. No pulm HTN. Pulmonic Valve: Normal pulmonic valve structure. No pulmonic regurgitation. Pericardium: Normal pericardium without pericardial effusion. Aorta: Mild aortic root dilation at sinuses of Valsalva. Normal aortic root size when indexed. IVC: IVC is normal in size. Resting ECG: Normal sinus rhythm. low voltage. Stress Data: Exercise Time: 10 Min 58 Sec Resting HR: 68 bpm Resting BP: 114/74 mmHg Standing HR: 82 bpm Standing BP: 110/80 mmHg Peak HR: 166 bpm Peak BP: 160/70 mmHg Predicted Maximal HR: 168 Percent predicted max HR achieved: 99 % Rate-Pressure Product: 0 METS Achieved: 13.40 Recovery: Recovery Time: 2 min Recovery HR: 114 bpm Recovery BP: 146/76 mmHg Recovery Time: 4 min Recovery HR: 92 bpm Recovery BP: 114/50 mmHg HR Response: Heart rate response is appropriate. BP Response: Blood pressure response is appropriate. Exercise ECG: Exercise ECG uninterpretable due to excessive artifact despite attempts to change ECG lead placement. Peak exercise immediately into recovery ECG with no ishcemic changes Reason for Termination: Fatigue. Cardiac Symptoms: Symptoms with stress were patient had no stress related symptoms. Exercise Performance: Exercise performance was good. Resting Segmental Wall Motion Analysis: Total wall motion score is 1.00. There are no regional wall motion abnormalities. Peak Segmental Wall Motion Analysis: Total wall motion score is 1.00. There are no regional wall motion abnormalities. MEASUREMENTS: 2D/MM Value Range Doppler Value Range EDV Mod BP 79.39 ml [ 46.00 - 106.00 ] AV Peak Chito 1.0 m/s [ 1.0 - 1.7 ] LV EDV Index 44.12 ml/m2 AV Peak PG 4.00 mmHg ESV Mod BP 22.31 ml [ 14.00 - 42.00 ] AV Mean PG 2 mmHg EF Mod BP 72 % [ 54 - 74 ] AV VTI 22.8 cm LV GLS -20.8 % [ -25.0 - -18.0 ] LVOT Peak Chito 1.0 m/s [ 0.7 - 1.1 ] LA Length 4C 4.91 cm LVOT Peak PG 4.00 mmHg LA Length 2C 4.63 cm LVOT Mean PG 2 mmHg LA Volume BP 30.58 ml LVOT VTI 21.8 cm LA Volume Index 17.00 ml/m2 [ 16.00 - 34.00 ] LVOT Diam 2.18 cm RV Base Dimen 2D 3.0 cm [ 2.5 - 4.2 ] BOBBY VTI 3.57 cm2 TAPSE 2.07 cm [ 1.71 - 5.00 ] LVOT/AV VTI 0.96 - Dimensionless index (DVI) RA Volume 29.56 ml MV E Peak Chito 0.6 m/s [ 0.6 - 1.3 ] RA Volume Index 16.43 ml/m2 MV A Peak Chito 0.5 m/s [ 1.0 - 1.2 ] AoR Diam 2D 3.46 cm [ 2.70 - 3.70 ] MV E/A 1.3 ratio [ 0.8 - 1.5 ] Ao Root Index 1.92 cm/m2 [ 1.00 - 2.00 ] MV Decel Time 268.33 msec [ 104.00 - 258.00 ] Asc Ao Diam 2D 3.48 cm Med E` Chito 8.5 cm/sec [ 8.0 - 25.0 ] Asc Ao Index 1.93 cm/m2 Lat E` Chito 11.6 cm/sec [ 10.0 - 25.0 ] Average E/E` 5.97 RV S` 18.50 cm/sec Electronically Signed By: Caden Aguilar M.D. 11/10/2024 12:09:39 PM CDT Wall Motion Analysis - Resting Wall Motion Analysis - Peak Procedure Note Caden Aguilar MD PhD - 11/10/2024 [facility] Cardiac [place] [address] [place] [address] Exercise Stress Transthoracic Echocardiographic Report Patient Name: NADIA JEWELL L : 1970 (54y 3m) Gender: F Study Date: 11/10/2024 10:30:00 AM Ht(Inch): 64 Wt(Lb): 158.07 BSA: 1.8 Calibration Technician: Deepika Diamond RDCS Location: [facility] Order Provider:CHASTITY WICK Heart Rate: 63 BMI: 27.13 Ref Provider: CHASTITY WICK PROCEDURES: Stress Echo Report: Stress Echocardiography transthoracic, real-time withimage documentation (2D), includes M-Mode recording, Doppler Echocardiographyand Doppler color flow when performed, during treadmill exercise induced peak heart ratewith interpretation and report; including performance of continuouselectrocardiographic monitoring, with physician supervision. Additional Procedures: Ultrasound enhancing agent (echo contrast) wasadministered. Contrast: 0.4 ml Optison Administered, (2.6 ml wasted). Performed By: Melani Montaoñ RN. Supervising Physician: Dr. Jose Martin Aguilar. Patient Assessment: The patient was NPO. Procedure Notes: IV Access Placement: right hand, right wrist, rightforearm, right antecubital fossa, left hand, left wrist, left forearm, left antecubitalfossa, left Upper Arm and. Catheter Size: 22 gauge. Patient has been giveninstructions and understands the test, consent obtained. Patient has been NPO for 4hours. INDICATIONS: Pre non-cardiac procedure/surgery, Z01.818 Encounter for otherpreprocedural examination, and N18.4 Chronic kidney disease, stage 4 (severe). CONCLUSIONS: 1. Maximal stress echocardiogram NEGATIVE for myocardial ischemia. 2. Normal left ventricular cavity size based on volume index. Normal leftventricular systolic function. The Ejection Fraction (Bellamy's) is measured at 72 %.Normal diastolic function. The average global longitudinal strain is normal. 3. Resting Segmental Wall Motion Analysis: Total wall motion score is1.00. There are no regional wall motion abnormalities. 4. Peak Segmental Wall Motion Analysis: Total wall motion score is 1.00.There are no regional wall motion abnormalities. 5. Exercise performance was good. 6. Normal right ventricular size. Normal right ventricular systolicfunction. TV S'= 0.18 m/s (normal function). 7. The estimated pulmonary artery systolic pressure is 20.0 mmHg. No pulmHTN. ATTESTATION: I have personally reviewed this study with a fellow in a teaching settingand attest to the findings and conclusions. - DISCLAIMER: The study images and the final report will be retained in the patientchart by the Echo Laboratory for the legally required time period. This chart constitutesthe legal record of any testing performed. FINDINGS: Left Ventricle: Normal left ventricular cavity size based on volume index.Normal left ventricular systolic function. The Ejection Fraction (Bellamy's) ismeasured at 72 %. Normal diastolic function. The average global longitudinal strain isnormal. The LV global strain is: -20.8 %. Right Ventricle: Normal right ventricular size. Normal right ventricularsystolic function. TV S'= 0.18 m/s (normal function). Left Atrium: The left atrium is normal in size. Right Atrium: The right atrium is normal in size. Mitral Valve: Normal mitral valve structure. Mild mitral valveregurgitation. Aortic Valve: Normal trileaflet aortic valve. No aortic regurgitation. Themean transaortic gradient is 2 mmHg. The aortic valve area by the continuityequation (using VTI) is 3.57 cm2. Aortic valve dimensionless index is 0.96. Tricuspid Valve: Normal tricuspid valve structure. Mild tricuspidregurgitation. The estimated pulmonary artery systolic pressure is 20.0 mmHg. No pulm HTN. Pulmonic Valve: Normal pulmonic valve structure. No pulmonicregurgitation. Pericardium: Normal pericardium without pericardial effusion. Aorta: Mild aortic root dilation at sinuses of Valsalva. Normal aorticroot size when indexed. IVC: IVC is normal in size. Resting ECG: Normal sinus rhythm. low voltage. Stress Data: Exercise Time: 10 Min 58 Sec Resting HR: 68 bpm Resting BP: 114/74 mmHg Standing HR: 82 bpm Standing BP: 110/80 mmHg Peak HR: 166 bpm Peak BP: 160/70 mmHg Predicted Maximal HR: 168 Percent predicted max HR achieved: 99 % Rate-Pressure Product: 0 METS Achieved: 13.40 Recovery: Recovery Time: 2 min Recovery HR: 114 bpm Recovery BP:146/76 mmHg Recovery Time: 4 min Recovery HR: 92 bpm Recovery BP: 114/50 mmHg HR Response: Heart rate response is appropriate. BP Response: Blood pressure response is appropriate. Exercise ECG: Exercise ECG uninterpretable due to excessive artifactdespite attempts to change ECG lead placement. Peak exercise immediately into recovery ECGwith no ishcemic changes Reason for Termination: Fatigue. Cardiac Symptoms: Symptoms with stress were patient had no stress relatedsymptoms. Exercise Performance: Exercise performance was good. Resting Segmental Wall Motion Analysis: Total wall motion score is 1.00.There are no regional wall motion abnormalities. Peak Segmental Wall Motion Analysis: Total wall motion score is 1.00.There are no regional wall motion abnormalities. MEASUREMENTS: 2D/MM Value Range DopplerValue Range EDV Mod BP 79.39 ml [ 46.00 - 106.00 ] AV Peak Vel1.0 m/s [ 1.0 - 1.7 ] LV EDV Index 44.12 ml/m2 AV Peak PG4.00 mmHg ESV Mod BP 22.31 ml [ 14.00 - 42.00 ] AV Mean PG2 mmHg EF Mod BP 72 % [ 54 - 74 ] AV VTI22.8 cm LV GLS -20.8 % [ -25.0 - -18.0 ] LVOT Peak Vel1.0 m/s [ 0.7 - 1.1 ] LA Length 4C 4.91 cm LVOT Peak PG4.00 mmHg LA Length 2C 4.63 cm LVOT Mean PG2 mmHg LA Volume BP 30.58 ml LVOT VTI21.8 cm LA Volume Index 17.00 ml/m2 [ 16.00 - 34.00 ] LVOT Diam2.18 cm RV Base Dimen 2D 3.0 cm [ 2.5 - 4.2 ] BOBBY VTI3.57 cm2 TAPSE 2.07 cm [ 1.71 - 5.00 ] LVOT/AV VTI0.96 - Dimensionless index (DVI) RA Volume 29.56 ml MV E Peak Vel0.6 m/s [ 0.6 - 1.3 ] RA Volume Index 16.43 ml/m2 MV A Peak Vel0.5 m/s [ 1.0 - 1.2 ] AoR Diam 2D 3.46 cm [ 2.70 - 3.70 ] MV E/A1.3 ratio [ 0.8 - 1.5 ] Ao Root Index 1.92 cm/m2 [ 1.00 - 2.00 ] MV Decel Imyr962.33 msec [ 104.00 - 258.00 ] Asc Ao Diam 2D 3.48 cm Med E` Vel8.5 cm/sec [ 8.0 - 25.0 ] Asc Ao Index 1.93 cm/m2 Lat E` Vel11.6 cm/sec [ 10.0 - 25.0 ] Average E/E` 5.97 RV S` 18.50 cm/sec Electronically Signed By: Caden Aguilar M.D. 11/10/2024 12:09:39 PM CDT Wall Motion Analysis - Resting Wall Motion Analysis - Peak us Chastity Wick MD CV ECHO PROCEDURES Final Result * CT Abdomen Pelvis WO Contrast (11/10/2024 8:59 AM CDT) Anatomical Region Laterality Modality Body N/A Computed Tomogra phy 11/10/2024 10:0 6 AM CDT Impressions 11/10/2024 12:38 PM CDT No significant atherosclerotic calcification of the aorta or iliac system. Dictated by: Yuri Moses MD The radiology attending physician has personally reviewed this study, and had reviewed and/or edited this written report and agrees with it. Electronically signed by: Winston Cano M.D. Narrative 11/10/2024 12:38 PM CDT EXAMINATION: Computed tomography of the abdomen and pelvis without intravenous contrast HISTORY: Kidney transplant evaluation TECHNIQUE: Transaxial computed tomographic images of the abdomen and pelvis were obtained without intravenous contrast according to the standard protocol. COMPARISON: None FINDINGS: Lung bases are clear. Normal heart size. No pericardial effusion. Innumerable hepatic cysts. Normal spleen. Normal pancreas. Normal adrenal glands. Bilateral nephromegaly with innumerable renal cysts, some of which have indeterminate attenuation likely hemorrhagic/proteinaceous. No hydroureteronephrosis. Urinary bladder is decompressed. Uterus is present. No adnexal mass. Mild colonic diverticulosis. Normal appendix. There is no significant atherosclerotic calcification of the aorta, common iliacs, or external iliacs bilaterally. No abdominopelvic lymphadenopathy. No free fluid or free air. No suspicious osseous lesion. Procedure Note Winston Cano MD - 11/10/2024 EXAMINATION: Computed tomography of the abdomen and pelvis without intravenous contrast HISTORY: Kidney transplant evaluation TECHNIQUE: Transaxial computed tomographic images of the abdomen and pelvis were obtained without intravenous contrast according to the standard protocol. COMPARISON: None FINDINGS: Lung bases are clear. Normal heart size. No pericardial effusion. Innumerable hepatic cysts. Normal spleen. Normal pancreas. Normal adrenal glands. Bilateral nephromegaly with innumerable renal cysts, some of which have indeterminate attenuation likely hemorrhagic/proteinaceous. No hydroureteronephrosis. Urinary bladder is decompressed. Uterus is present. No adnexal mass. Mild colonic diverticulosis. Normal appendix. There is no significant atherosclerotic calcification of the aorta, common iliacs, or external iliacs bilaterally. No abdominopelvic lymphadenopathy. No free fluid or free air. No suspicious osseous lesion. IMPRESSION: No significant atherosclerotic calcification of the aorta or iliac system. Dictated by: Yuri Moses MD The radiology attending physician has personally reviewed this study, and had reviewed and/or edited this written report and agrees with it. Electronically signed by: Winston Cano M.D. Chastity Wick MD IMG CT PROCEDURES Final Result * ECG 12 lead (11/10/2024 8:26 AM CDT) Pathologist [facility] Ventricular Rate EKG/Min 64 BPM [facility] Atrial Rate 64 BPM [facility] PA-Interval (MSEC) 150 ms [facility] QRS-Interval (MSEC) 80 ms [facility] QT-Interval (MSEC) 396 ms [facility] QTc 408 ms [facility] P [place] 41 degrees [facility] R [place] 9 degrees [facility] T [place] 27 degrees [facility] Diagnosis Normal sinus rhythm Low voltage QRS Cannot rule out Anteroseptal infarct , age undetermined Abnormal ECG No previous ECGs available Confirmed by Anurag Cai MD ([id number]) on 11/11/2024 9:37:55 PM [facility] 11/10/2024 8:26 AM CDT 11/11/2024 9:37 PM CDT Chastity Wick MD ECG ORDERABLES Final Result [facility] * ABO/Rh (11/10/2024 8:25 AM CDT) ABO Rh A Positive Blood 11/10/2024 8:25 AM CDT 11/10/2024 12:29 PM CDT Akilah [facility]ERNSTE[facility] - 11/10/2024 1:12 PM CDT Please draw the ABO and the Type and Screen as two separate blood draws with each stamped with the two different times stamps as this is a regulatory requirement for this patient to be listed for Kidney Transplant. This lab is being obtained as part of a Kidney transplant evaluation, is time sensitive, and should only be drawn during the evaluation visit at [facility] 3C Lab. us Chastity Wick MD LAB BLOOD BANK TEST ORDERABLES Final Result Performing Organization Address [facility] de Phone Number [facility] One [facility] Department [place] [address] * LR HLA Typing (Class I and Class II) (11/10/2024 8:15 AM CDT) r-SSO HISTOTRAC A First Allele A*02 HISTOTRAC A Second Allele A*31 HISTOTRAC A First Serological Equivalent A2 HISTOTRAC A Second Serological Equivalent A31 HISTOTRAC B First Allele B*15 HISTOTRAC B Second Allele B*40 HISTOTRAC B First Serological Equivalent B62 HISTOTRAC B Second Serological Equivalent B60 HISTOTRAC Bw First Serological Equivalent Bw6 HISTOTRAC Bw Second Serological Equivalent Bw6 HISTOTRAC C First [place]lele C*03 HISTOTRAC C Second Allele C*03 HISTOTRAC C First Serological Equivalent Cw10 HISTOTRAC C Second Serological Equivalent Cw9 HISTOTRAC DRB1 First [place]lele DRB1*07 HISTOTRAC DRB1 Second [place]lele DRB1*[address] HISTOTRAC [address]B1 First Serological Equivalent DR7 HISTOTRAC DRB1 Second Serological Equivalent DR13 HISTOTRAC DRB3 First [place] DRB3*[address] HISTOTRAC DRB3 First Serological Equivalent DR52 HISTOTRAC DRB4 Second [place]lele DRB4*[address] HISTOTRAC [address]B4 Second Serological Equivalent DR53 HISTOTRAC DQA1 First [place] DQA1*01 HISTOTRAC DQA1 Second [place]lele DQA1*02 HISTOTRAC DQB1 First [place] DQB1*02 HISTOTRAC DQB1 Second [place]lele DQB1*06 HISTOTRAC DQB1 First Serological Equivalent DQ2 HISTOTRAC DQB1 Second Serological Equivalent DQ6 HISTOTRAC DPB1 First [place]le DPB1*02:01: 02G HISTOTRAC DPB1 Second Allele DBP1*04:01: 01G HISTOTRAC DPA1 First Allele DPA1*01 HISTOTRAC DPA1 Second Allele DPA1*01 HISTOTRAC Reportable Comments Unable to resolve rare B*40, 46. 11/10/2024 EK HISTOTRAC Blood 11/10/2024 8:15 AM CDT 11/11/2024 10:29 AM CDT Narrative HIST[facility]RAC - 11/11/2024 10:29 AM CDT DNA was extracted from whole blood or buccal cell specimens, and relevant genomic regions were amplified by polymerase chain reactions (PCR). HLA typing was performed on PCR amplicons using reverse sequence-specific oligonucleotide (r-SSO) and/or sequence-specific primers (SSP) based techniques. r-SSO and SSP are FDA approved as IVD tests and validated by the [facility] HLA Laboratory. Testing performed at the [facility], [address] [place] [address], 5th floor, [place], [address]. [facility] # [id number]. Mindi Sarabia, Ph.D., Educational Technology Coordinator, HLA Laboratory Georges Lopez M.D., Ph.D., General Manager [employer], HLA Laboratory Zenia Bojorquez, Ph.D., CLIA General Manager [employer], [facility] Clinical Laboratories Current methodology comment last revised on 12/12/16. us Chasitty Wick MD LAB BLOOD ORDERABLES Final Resu lt HISTOTRAC * Collection Task for HLA Typing 1 (11/10/2024 8:15 AM CDT) HLA Class I DNA (ABC) Recipient Received Blood 11/10/2024 8:15 AM CDT 11/10/2024 10:41 AM CDT Chastity Wick MD LAB BLOOD ORDERABLES Final Resu lt Performing Organization Address [facility] Co de Phone Number DAY [facility] [place] [address] * Collection Task for HLA Antibody Screen (11/10/2024 8:15 AM CDT) Pathologist [facility] HLA Antibody Screen By Single Antigen Received Blood 11/10/2024 8:15 AM CDT 11/10/2024 10:41 AM CDT us Chastity Wick MD LAB BLOOD ORDERABLES Final Resu lt Performing Organization Address [facility] de Phone Number [facility] [place] [address] * Collection Task for HLA Typing 2, Patient (11/10/2024 8:15 AM CDT) Pathologist [facility] HLA Class II DNA (DR, DQ, DP) Recipient Received Blood 11/10/2024 8:15 AM CDT 11/10/2024 10:41 AM CDT Chastity Wick MD LAB BLOOD ORDERABLES Final Resu lt Performing Organization Address [facility] de Phone Number [facility] [place] [address] * (ABNORMAL) eGFR (11/10/2024 8:15 AM CDT) eGFR 19(L) >=60 mL/min/1. 73 m2 Comment: Interpretive Data Reference Interval Normal >/= 90 mL/min/1.73m2 Mildly decreased* 60 - 89 mL/min/1.73m2 Mildly to moderately decreased 45 - 59 mL/min/1.73m2 Moderately to severely decreased 30 - 44 mL/min/1.73m2 Severely decreased 15 - 29 mL/min/1.73m2 Kidney Failure < 15 mL/min/1.73m2 *Relative to young adult level Estimated glomerular filtration rate is determined by the 2020 CKD-EPI equation recommended by the National Kidney [employer] (A Unifying Approach to GFR Estimation: Recommendations of the NKF-ASK Task Force on Reassessing the Inclusion of Race in Diagnosing Kidney Disease, JASN 2020). The CKD-EPI equation should not be used for patients with unstable renal function and has not been validated in children and those over 70. Current interpretive data was last reviewed 2021. Blood 11/10/2024 8:15 AM CDT 11/10/2024 9:05 AM CDT us Chastity Wick MD LAB BLOOD ORDERABLES Final Resu lt [facility] One [facility] Department [place] [address] * Differential, auto (11/10/2024 8:15 AM CDT) Pathologist [facility] Neutrophil abs 2.35 1.50 - 6.50 K/cumm Imm gran abs 0.01 0.00 - 0.10 K/cumm [facility] Lymphocyte abs 1.68 0.80 - 3.30 K/cumm [facility] Monocyte abs 0.53 0.20 - 0.80 K/cumm [facility] Eosinophil abs 0.23 0.00 - 0.50 K/cumm [facility] Basophil abs 0.02 0.00 - 0.10 K/cumm [facility] Neutrophil pct 48.7 % [facility] Comment: Interpretive Data Percent cell count reference ranges are not reported, since discordance with absolute values may lead to misinterpretation of CBC data. Current Interpretive Data was last revised on 2017. Imm gran pct 0.2 % [facility] Comment: Interpretive Data Percent cell count reference ranges are not reported, since discordance with absolute values may lead to misinterpretation of CBC data. Current Interpretive Data was last revised on 2017. Lymphocyte pct 34.9 % [facility] Comment: Interpretive Data Percent cell count reference ranges are not reported, since discordance with absolute values may lead to misinterpretation of CBC data. Current Interpretive Data was last revised on 2017. Monocyte pct 11.0 % [facility] Comment: Interpretive Data Percent cell count reference ranges are not reported, since discordance with absolute values may lead to misinterpretation of CBC data. Current Interpretive Data was last revised on 2017. Eosinophil pct 4.8 % [facility] Comment: Interpretive Data Percent cell count reference ranges are not reported, since discordance with absolute values may lead to misinterpretation of CBC data. Current Interpretive Data was last revised on 2017. Basophil pct 0.4 % [facility] Comment: Interpretive Data Percent cell count reference ranges are not reported, since discordance with absolute values may lead to misinterpretation of CBC data. Current Interpretive Data was last revised on 2017. Blood 11/10/2024 8:15 AM CDT 11/10/2024 9:01 AM CDT Chastity Wick MD LAB BLOOD ORDERABLES Final Resu lt Performing Organization Address City/[facility]/ZIP Co de Phone Number [facility] Department [place] [address] * (ABNORMAL) Iron profile w/ IBC (11/10/2024 8:15 AM CDT) Iron 76 35 - 145 mcg/dL TIBC 246(L) 250 - 400 mcg/dL [facility] Transferrin saturation 31 20 - 50 % [facility] Blood 11/10/2024 8:15 AM CDT 11/10/2024 9:01 AM CDT Narrative [facility] - 11/10/2024 10:13 AM CDT This lab is being obtained as part of a Kidney transplant evaluation, is time sensitive, and should only be drawn during the evaluation visit at [facility] Lab. Chastity Wick MD LAB BLOOD ORDERABLES Final Resu lt Performing Organization Address City/[facility]/ZIP Co de Phone Number [facility] Department [place] [address] * HIV 1/2 Antibody plus p24 Antigen Blood (11/10/2024 8:15 AM CDT) Pathologist [facility] HIV 1/2 ab + p24 ag Nonreactive Nonreactive Comment:Nonreactive for HIV- 1 antigen and HIV-1/HIV-2 antibodies. No laboratory evidence of HIV infection. If acute HIV infection is suspected, consider testing for HIV-1 RNA. Current interpretive data was last revised on 21. Blood 11/10/2024 8:15 AM CDT 11/10/2024 9:01 AM CDT Narrative [facility] 11/10/2024 9:39 AM CDT This lab is being obtained as part of a Kidney transplant evaluation, is time sensitive, and should only be drawn during the evaluation visit at [address] Lab[address] Chastity Wick MD LAB MICROBIOLOGY - [facility] Final Result [facility] Department [place] [address] * (ABNORMAL) CMV, IgG Blood (11/10/2024 8:15 AM CDT) Pathologist [facility] CMV IgG Positive( A) Negative Comment: Interpretive Data Negative - Individuals with negative CMV IgG results are presumed to not have had prior exposure or infection with CMV and are, therefore, considered susceptible to primary infection. Equivocal - Equivocal results may occur during acute infection or may be due to nonspecific binding reactions. Submit an additional sample for testing if clinically indicated. Positive - Indicates presence of detectable CMV IgG antibody. Results indicate past or recent CMV infection. Blood 11/10/2024 8:15 AM CDT 11/10/2024 9:01 AM CDT Narrative [facility] 11/10/2024 11:20 AM CDT This lab is being obtained as part of a Kidney transplant evaluation, is time sensitive, and should only be drawn during the evaluation visit at [address] Lab. Chastity Wick MD LAB MICROBIOLOGY - GENERAL ORDE RABLES Final Result Performing Organization Address City/[facility]/ZIP Co de Phone Number [facility] Department [place] [address] * Urinalysis reflex to microscopic (11/10/2024 8:15 AM CDT) Color, ur Straw Yellow Clarity, ur Clear Clear [facility] Specific gravity, ur 1.008 1.003 - 1.030 [facility] pH, urine 6.5 [facility] Comment: Interpretive Data U rine pH is affected by diet, medications, systemic acid-base disturbances, and renal tubular function. pH may affect urinary stone formation. For example, urine pH below 6.0 may help reduce the tendency for calcium phosphate stones and pH greater than 6.0 may reduce the tendency for uric acid stone formation. Source: [facility] Current Interpretive Data was last revised on 2017 Protein, ur ql Negative Negative [facility] Glucose, ur ql Negative Negative [facility] Ketones, ur Negative Negative [facility] Bilirubin, ur Negative Negative [facility] Blood, ur Negative Negative [facility] Urobilinogen, ur <2.0 <2.0 mg/dL [facility] Nitrite, ur Negative Negative [facility] Leukocyte esterase, ur Negative Negative [facility] UA reflex comment Reflex conditions for microscopic UA not met. [facility] Urine 11/10/2024 8:15 AM CDT 11/10/2024 9:01 AM CDT Narrative [facility] - 11/10/2024 9:12 AM CDT This lab is being obtained as part of a Kidney transplant evaluation, is time sensitive, and should only be drawn during the evaluation visit at [facility] Lab. Chastity Wick MD LAB URINE ORDERABLES Final Resu lt [facility] Department [place] [address] * HLA Antibody Screen - SAB (Class I and Class II) (11/10/2024 8:15 AM CDT) Class I Treatment EDTA [facility] Class I Dilution 1:1 [facility] Class I Tested Date 11/10/2024 [facility] Class I Result Positive [facility] Class I CPRA 92 [facility] Class I Increased Risk A23, A24; Bw4; Cw2 [facility] Class I Moderate Risk A1, A25, A32, A34, A66; B35, B38, B51, B53, B57, B58, B63; Cw4, Cw5, Cw6, Cw15, Cw17, Cw18 [facility] Class I Low Risk A11, A66, A80; B49, B51, B59, B77 [facility] Class I Reportable Comments Bw4 pattern is present. [facility] Class II Treatment EDTA [facility] Class II Dilution 1:1 [facility] Class II Tested Date 11/10/2024 HISTOTRAC Class II Result Positive HISTOT[facility]AC Class II CPRA 95 [facility] Class II Increased Risk DR4, DR8, DR11, DR15, DR16; DQ7, DQ8, DQ9 [facility] Class II Moderate Risk DR1, DR9, DR10, DR51; DPB1*01:01, DPB1*03:01, DPB1*06:01, DPB1*09:01, DPB1*10:01, DPB1*11:01, DPB1*14:01, DPB1*17:01, DPB1*20:01 [facility] Class II Low Risk DR103, DR7, DR51, DR52; DPB1*01:01, DPB1*05:01, DPB1*06:01, DPB1*13:01, DPB1*19:01 [facility] Class II Reportable Comments Allelic antibody not listed: DRB1*13:03 (alloantibody , increased risk), patient is DRB1*13:01 per [facility]. [facility] Blood 11/10/2024 8:15 AM CDT 11/11/2024 11:12 AM CDT Narrative [facility] - 11/11/2024 11:12 AM CDT Single-antigen HLA antibody screen is performed on serum samples using a method developed and validated by the [facility] HLA laboratory based on an FDA-approved IVD kit (LABScreen Single-Antigen, [facility], [place], [place]). All patient serum samples are pretreated with EDTA before the screen to prevent complement interference. Additional serum treatments, such as adsorption and DTT treatment, may be performed as indicated. Interpretive comments: Low risk: MFI [id number]. Moderate risk: MFI 6709-1730. Increased risk: MFI >/= 5000. The presence of an antigen in two or more risk categories may indicate a mixed reactivity pattern among beads of multiple subtypes. Preformed donor-specific antibodies (DSA) with MFI above 2000 are predictive of positive cytotoxicity crossmatch (Hum Immunol 2010;71:268-73. Hum Immunol 2012;73:497- 604) and carry a higher risk of humoral rejection. For our solid-organ transplant programs, unacceptable antigens (UA) for transplant candidates are defined by MFI >/= 2000 with some exceptions. UA are listed at [facility] and used to generate calculated PRA (cPRA) rounded to the nearest integer. In the post-transplant setting, MFI values from donor-specific beads are listed in the DSA report to provide additional information. It is important to note that this test is approved as a qualitative test and the MFI values are not strictly linear. For platelet refractoriness: An empirical cutoff value of MFI >/= 2000 has been used in our center; a higher cutoff value such as 5000 may also be suitable for highly sensitized patients to prioritize the antigens to avoid. Testing performed at the [facility], [address] [place] [address], 5th floor, [place], [address]. [place] # [id number]. Mindi Sarabia, Ph.D., Educational Technology Coordinator, HLA Laboratory Georges Lopez M.D., Ph.D., General Manager [employer], HLA Laboratory Zenia Bojorquez, Ph.D., CLIA General Manager [employer], [facility] Current methodology and interpretive comments last revised on 05/04/2022. us Chastity Wick MD LAB BLOOD ORDERABLES Final Resu lt [facility] * CBC with auto differential (11/10/2024 8:15 AM CDT) [facility] WBC 4.82 3.80 - 9.90 K/cumm Hgb 12.1 11.9 - 15.5 g/dL [facility] Hct 36.9 35.6 - 45.5 % [facility] Plt 186 150 - 400 K/cumm [facility] MPV 11.3 9.1 - 12.3 fL [facility] RBC 4.00 3.90 - 5.20 M/cumm [facility] MCV 92.3 81.3 - 96.4 fL [facility] MCH 30.3 27.1 - 33.3 pg [facility] MCHC 32.8 32.3 - 35.7 g/dL [facility] RDW CV 12.3 11.1 - 14.9 % [facility] RDW SD 41.6 35.7 - 48.1 fL [facility] NRBC abs 0.00 0.00 - 0.01 K/cumm [facility] Blood 11/10/2024 8:15 AM CDT 11/10/2024 9:01 AM CDT Narrative [facility] - 11/10/2024 9:16 AM CDT This lab is being obtained as part of a Kidney transplant evaluation, is time sensitive, and should only be drawn during the evaluation visit at [facility] Lab. us Chastity Wick MD LAB BLOOD ORDERABLES Final Resu lt [facility] Department [place] [address] * Hepatitis C antibody Blood (11/10/2024 8:15 AM CDT) [facility] Hep C Ab Nonreactive Nonreactive Comment:Antibodies to HCV no t detected. Does NOT exclude the possibility of recent exposure to HCV. Current interpretive data was last revised on 21 Blood 11/10/2024 8:15 AM CDT 11/10/2024 9:01 AM CDT Narrative [facility] - 11/10/2024 9:49 AM CDT This lab is being obtained as part of a Kidney transplant evaluation, is time sensitive, and should only be drawn during the evaluation visit at [address] Chastity Wick MD LAB MICROBIOLOGY - GENERAL ORDE RABRADHA Final Result Performing Organization Address [facility] Co de Phone Number [facility] [place] [address] * (ABNORMAL) Shaista-Flores virus (EBV) antibody panel Blood (11/10/2024 8:15 AM CDT) Pathologist [facility] EBV nuclear Ab Positive(A) Negative Comment:Indicates the presen ce of detectable IgG antibody to EBV Nuclear Antigen. EBV VCA IgG Positive(A) Negative [facility] Comment:Indicates the presen ce of antibody; 90% of the adult population will have been infected with EBV sometime in the past. EBV VCA IgM Negative Negative [facility] Comment:No detectable IgM an tibody to EBV-VCA. A negative result indicates no current infection with EBV. If clinical suspicion of acute EBV infection is present, testing should be repeated after one week. EBV interp Past Infection [facility] Blood 11/10/2024 8:15 AM CDT 11/10/2024 9:01 AM CDT Narrative [facility] - 11/10/2024 11:10 AM CDT This lab is being obtained as part of a Kidney transplant evaluation, is time sensitive, and should only be drawn during the evaluation visit at [address] Chastity Wick MD LAB MICROBIOLOGY - GENERAL ORDE RABRADHA Final Result Performing Organization Address [facility] Co de Phone Number [facility] [place] [address] * Hepatitis B core antibody, total Blood (11/10/2024 8:15 AM CDT) Pathologist [facility] Hep B core IgG/IgM Nonreactive Nonreactive Blood 11/10/2024 8:15 AM CDT 11/10/2024 9:01 AM CDT Narrative [facility] 11/10/2024 9:49 AM CDT This lab is being obtained as part of a Kidney transplant evaluation, is time sensitive, and should only be drawn during the evaluation visit at [address] Lab. Chastity Wick MD LAB MICROBIOLOGY - GENERAL ORDE RABLES Final Result Performing Organization Address [facility] de Phone Number [facility] [place] [address] * Protein, urine, random (11/10/2024 8:15 AM CDT) Protein, ur, quant 5.1 mg/dL Comment: Interpretive Data No reference range established. Current interpretive data was last revised 2018. Urine 11/10/2024 8:15 AM CDT 11/10/2024 9:01 AM CDT Narrative [facility] 11/10/2024 9:35 AM CDT This lab is being obtained as part of a Kidney transplant evaluation, is time sensitive, and should only be drawn during the evaluation visit at [address] Lab. Chastity Wick MD LAB URINE ORDERABLES Final Resu lt Performing Organization Address [facility] de Phone Number [facility] [place] [address] * Creatinine, urine, random (11/10/2024 8:15 AM CDT) Creatinine Ur 42.9 mg/dL Comment: Interpretive Data No reference range established. Current interpretive data was last revised 2018. Urine 11/10/2024 8:15 AM CDT 11/10/2024 9:01 AM CDT Narrative [facility] 11/10/2024 9:35 AM CDT This lab is being obtained as part of a Kidney transplant evaluation, is time sensitive, and should only be drawn during the evaluation visit at [address] Lab. Chastity Wick MD LAB URINE ORDERABLES Final Resu lt [facility] [place] [address] * HSV 2 IgG Antibody Blood (11/10/2024 8:15 AM CDT) HSV 2 IgG Nonreactive Nonreactive Comment: Interpretive Data 1. Nonreactive: No detectable IgG antibody to HSV-2. 2. Equivocal: Presence or absence of detectable antibodies to HSV-2 cannot be determined and the test should be repeated. 3. Reactive: Indicates presence of detectable IgG antibody to HSV-2. Current interpretive data was last revised on 2022. Blood 11/10/2024 8:15 AM CDT 11/10/2024 9:01 AM CDT Narrative [facility] - 11/10/2024 11:21 AM CDT This lab is being obtained as part of a Kidney transplant evaluation, is time sensitive, and should only be drawn during the evaluation visit at [address] Lab. Chastity Wick MD LAB MICROBIOLOGY - GENERAL ORDE RABLES Final Result Performing Organization Address [facility] Co de Phone Number [facility] [place] [address] * HSV 1 IgG Antibody Blood (11/10/2024 8:15 AM CDT) HSV 1 IgG Nonreactive Nonreactive Comment: Interpretive Data 1. Nonreactive: No detectable IgG antibody to HSV-1. 2. Equivocal: Presence or absence of detectable antibodies to HSV-1 cannot be determined and the test should be repeated. 3. Reactive: Indicates presence of detectable IgG antibody to HSV-1. Current interpretive data was last revised on 2016. Blood 11/10/2024 8:15 AM CDT 11/10/2024 9:01 AM CDT Narrative [facility] - 11/10/2024 11:21 AM CDT This lab is being obtained as part of a Kidney transplant evaluation, is time sensitive, and should only be drawn during the evaluation visit at [address] Chastity Wick MD LAB MICROBIOLOGY - GENERAL ORDE RABLES Final Result Performing Organization Address [facility] [place] [address] * RPR Blood (11/10/2024 8:15 AM CDT) RPR Nonreactive Nonreactive Blood 11/10/2024 8:15 AM CDT 11/10/2024 9:01 AM CDT Narrative [facility] 11/10/2024 10:13 AM CDT This lab is being obtained as part of a Kidney transplant evaluation, is time sensitive, and should only be drawn during the evaluation visit at [address] Chastity Wick MD LAB MICROBIOLOGY - GENERAL ORDE RABLES Final Result Performing Organization Address [facility] [place] [address] * Hepatitis B surface antibody (immune status) Blood (11/10/2024 8:15 AM CDT) HBsAb (immune status) Nonreactive Comment:This result is consi stent with a lack of immunity to Hepatitis B Virus when used in the setting of routine screening. Current interpretative data was last revised on 21 Blood 11/10/2024 8:15 AM CDT 11/10/2024 9:01 AM CDT Narrative [facility] 11/10/2024 9:49 AM CDT This lab is being obtained as part of a Kidney transplant evaluation, is time sensitive, and should only be drawn during the evaluation visit at [address] Chastity Wick MD LAB MICROBIOLOGY - GENERAL ORDE RABLES Final Result Performing Organization Address [facility] de Phone Number [facility] [place] [address] * Hepatitis B Surface Antigen Blood (11/10/2024 8:15 AM CDT) HepBsAg Nonreactive Nonreactive Blood 11/10/2024 8:15 AM CDT 11/10/2024 9:01 AM CDT Narrative [facility] - 11/10/2024 9:49 AM CDT This lab is being obtained as part of a Kidney transplant evaluation, is time sensitive, and should only be drawn during the evaluation visit at [address] Lab. Chastity Wick MD LAB MICROBIOLOGY - GENERAL [facility] Final Result Performing Organization Address [facility] [place] [address] * aPTT (11/10/2024 8:15 AM CDT) aPTT 33 28 - 38 sec Comment: Interpretive Data Heparin therapeutic range: 66.0 - 100.0 seconds. Range based on correlation with therapeutic heparin activity range of 0.3 - 0.7 Units/mL. Current interpretive data was last revised on 2023. Blood 11/10/2024 8:15 AM CDT 11/10/2024 9:01 AM CDT Narrative [facility] - 11/10/2024 9:33 AM CDT This lab is being obtained as part of a Kidney transplant evaluation, is time sensitive, and should only be drawn during the evaluation visit at [address] Lab. Chastity Wick MD LAB BLOOD ORDERABLES Final Resu lt Performing Organization Address [facility] [place] [address] * Protime-INR (11/10/2024 8:15 AM CDT) PT 10.9 9.7 - 13.0 sec INR 1.01 0.90 - 1.20 [facility] Comment: Interpretive data Oral anticoagulant therapeutic ranges: Venous thromboembolism prophylaxis or treatment: 2.0-3.0 CARDIOLOGY Standard range: 2.0-3.0 High-intensity range: 2.5-3.5 Refer to indication-specific guidelines for appropriate target ranges for prosthetic heart valve replacement. Current interpretive data was last revised on 2019. Blood 11/10/2024 8:15 AM CDT 11/10/2024 9:01 AM CDT Narrative [facility] - 11/10/2024 9:33 AM CDT This lab is being obtained as part of a Kidney transplant evaluation, is time sensitive, and should only be drawn during the evaluation visit at [address] Lab. Chastity Wick MD LAB BLOOD ORDERABLES Final Resu lt Performing Organization Address City/[facility] Co de Phone Number [facility] Department [place] [address] * Type and screen (11/10/2024 8:15 AM CDT) Jesus, indirect Negative ABO Rh A Positive [facility] Blood 11/10/2024 8:15 AM CDT 11/10/2024 9:29 AM CDT Narrative [facility] - 11/10/2024 10:26 AM CDT Please draw the ABO and the Type and Screen as two separate blood draws with each stamped with the two different times stamps as this is a regulatory requirement for this patient to be listed for Kidney Transplant. This lab is being obtained as part of a Kidney transplant evaluation, is time sensitive, and should only be drawn during the evaluation visit at [address] Lab. Has the patient had Daratumumab or Isatuximab in the past 6 months?->Unknown Chastity Wick MD LAB BLOOD BANK TEST ORDERABLES Final Result Performing Organization Address [facility]/ZIP Co de Phone Number [facility] [place] [address] * Varicella Zoster IgG antibody Blood (11/10/2024 8:15 AM CDT) Pathologist [facility] VZV IgG Reactive Reactive Comment:Reactive: Results alcocer ggest response to immunization or prior exposure to the virus. Blood 11/10/2024 8:15 AM CDT 11/10/2024 9:01 AM CDT Narrative [facility] 11/10/2024 11:21 AM CDT This lab is being obtained as part of a Kidney transplant evaluation, is time sensitive, and should only be drawn during the evaluation visit at [address] Lab[address] Chastity Wick MD LAB MICROBIOLOGY - GENERAL [facility] Final Result Performing Organization Address [facility] [place] [address] * (ABNORMAL) Uric acid (11/10/2024 8:15 AM CDT) [facility] Uric acid 7.7(H) 2.5 - 7.0 mg/dL Blood 11/10/2024 8:15 AM CDT 11/10/2024 9:01 AM CDT Narrative [facility] 11/10/2024 9:39 AM CDT This lab is being obtained as part of a Kidney transplant evaluation, is time sensitive, and should only be drawn during the evaluation visit at [address] Lab. Chastity Wick MD LAB BLOOD ORDERABLES Final Resu lt Performing Organization Address [facility] [place] [address] * Phosphorus (11/10/2024 8:15 AM CDT) Pathologist [facility] Phosphorus, pl 3.9 2.3 - 4.5 mg/dL Blood 11/10/2024 8:15 AM CDT 11/10/2024 9:01 AM CDT Narrative [facility] - 11/10/2024 9:39 AM CDT This lab is being obtained as part of a Kidney transplant evaluation, is time sensitive, and should only be drawn during the evaluation visit at [address] Chastity Wick MD LAB BLOOD ORDERABLES Final Resu lt Performing Organization Address [facility] de Phone Number [facility] [place] [address] * (ABNORMAL) PTH (11/10/2024 8:15 AM CDT) [facility] PTH 108(H) 15 - 65 pg/mL Blood 11/10/2024 8:15 AM CDT 11/10/2024 9:01 AM CDT Narrative [facility] 11/10/2024 9:33 AM CDT This lab is being obtained as part of a Kidney transplant evaluation, is time sensitive, and should only be drawn during the evaluation visit at [address] Chastity Wick MD LAB BLOOD ORDERABLES Final Resu Performing Organization Address [facility] [place] [address] * Hemoglobin A1c (11/10/2024 8:15 AM CDT) [facility] Hgb A1C 5.5 4.0 - 5.6 % Estimated Average Glucose 111 mg/dL [facility] Comment: The ADA recommends reporting an estimated Average Glucose (eAG) with all Hemoglobin A1c results using the equation derived from a study of 507 normal and diabetic adults. Minority populations were underrepresented and children were not included. (Diabetes Care 2020; 43(S1): S66-S76). The eAG is not equivalent to a fasting glucose. Blood 11/10/2024 8:15 AM CDT 11/10/2024 9:01 AM CDT Narrative [facility] - 11/10/2024 9:25 AM CDT This lab is being obtained as part of a Kidney transplant evaluation, is time sensitive, and should only be drawn during the evaluation visit at [address] Chastity Wick MD LAB BLOOD ORDERABLES Final Resu lt Performing Organization Address City/[facility] Co de Phone Number [facility] [place] [address] * Gamma GT (11/10/2024 8:15 AM CDT) GGT 18 5 - 35 Units/L Blood 11/10/2024 8:15 AM CDT 11/10/2024 9:01 AM CDT Narrative [facility] 11/10/2024 9:39 AM CDT This lab is being obtained as part of a Kidney transplant evaluation, is time sensitive, and should only be drawn during the evaluation visit at [address] Chastity Wick MD LAB BLOOD ORDERABLES Final Resu lt Performing Organization Address [facility] de Phone Number [facility] [place] [address] * Ferritin (11/10/2024 8:15 AM CDT) Pathologist [facility] Ferritin 101 13 - 150 ng/mL Blood 11/10/2024 8:15 AM CDT 11/10/2024 9:01 AM CDT Narrative [facility] - 11/10/2024 9:39 AM CDT This lab is being obtained as part of a Kidney transplant evaluation, is time sensitive, and should only be drawn during the evaluation visit at [address] Chastity Wick MD LAB BLOOD ORDERABLES Final Resu lt Performing Organization Address City/[facility] Co de Phone Number [facility] [place] [address] * Lipid panel (11/10/2024 8:15 AM CDT) Cholesterol 178 30 - 199 mg/dL Comment: Interpretive Data Ages < or = 19 years Acceptable: <170 mg/dL Borderline high: 170-199 mg/dL High: >or= 200 mg/dL Ages > or = 20 years Desirable: <200 mg/dL Borderline high: 200-239 mg/dL High: >or= 240 mg/dL Literature References: 1. Expert Panel on Integrated Guidelines for Cardiovascular Health and Risk Reduction in Children and Adolescents. Pediatrics 2011;128:S213 2. NCEP Expert Panel. Circulation 2004;110:227 Current Interpretive Data was last revised on 2017. Triglycerides 108 <=149 mg/dL [facility] Comment: Interpretive Data Ages < or = 9 years Acceptable: <75 mg/dL Borderline high: 75-99 mg/dL High: >or= 100 mg/dL Ages 10 to 20 years Acceptable: <90 mg/dL Borderline high: 90-129 mg/dL High: >or= 130 mg/dL Ages > or = 20 years Desirable: <150 mg/dL Borderline high: 150-199 mg/dL High: 200-499 mg/dL Very high: >or= 499 mg/dL Literature References: 1. Expert Panel on Integrated Guidelines for Cardiovascular Health and Risk Reduction in Children and Adolescents. Pediatrics 2011;128:S213 2. NCEP Expert Panel. Circulation 2004;110:227 Current Interpretive Data was last revised on 2017. HDL 57 >=40 mg/dL [facility] Comment: Interpretive Data Ages < or = 19 years Acceptable: >45 mg/dL Borderline low: 40-45 mg/dL Low: <40 mg/dL Ages > or = 20 years Desirable: >or= 60 mg/dL Low: <40 mg/dL Literature References: 1. Expert Panel on Integrated Guidelines for Cardiovascular Health and Risk Reduction in Children and Adolescents. Pediatrics 2011;128:S213 2. NCEP Expert Panel. Circulation 2004;110:227 Current Interpretive Data was last revised on 2017. LDL, calculated 102 <=129 mg/dL [facility] Comment: Interpretive Data Ages < or = 19 years Acceptable: <110 mg/dL Borderline high: 110-129 mg/dL High: >or= 130 mg/dL Ages > or = 20 years Optimal: <100 mg/dL Near optimal: 100-129 mg/dL Borderline high: 130-159 mg/dL High: >160 mg/dL Calculated using the Price LDL-C estimating equation. This equation was implemented on 2023. Prior to this date LDL-C was estimated using the Friedewald equation. Literature References: 1. Expert Panel on Integrated Guidelines for Cardiovascular Health and Risk Reduction in Children and Adolescents. Pediatrics 2011;128:S213 2. NCEP Expert Panel. Circulation 2004;110:227 3. Price Jorgensen et al. MARGE Cardiol. 2019August 07;5(5):540-548. doi: 10.1001/[email or web address].2020.0013 Current Interpretive Data was last revised on 2023. Non-HDL Cholesterol 121 mg/dL [facility] Comment: Interpretive Data Ages < or = 19 years Acceptable: <120 mg/dL Borderline high: 120-144 mg/dL High: >145 mg/dL Ages > or = 20 years When triglycerides are >200 mg/dL, Non-HDL cholesterol is a secondary target of therapy with treatment goals that are 30 mg/dL greater than the LDL cholesterol target. Literature References: 1. Expert Panel on Integrated Guidelines for Cardiovascular Health and Risk Reduction in Children and Adolescents. Pediatrics 2011;128:S213 2. NCEP Expert Panel. Circulation 2004;110:227 Current Interpretive Data was last revised on 2017. Chol/HDL ratio 3 [facility] Blood 11/10/2024 8:15 AM CDT 11/10/2024 9:01 AM CDT Narrative [facility] - 11/10/2024 9:39 AM CDT This lab is being obtained as part of a Kidney transplant evaluation, is time sensitive, and should only be drawn during the evaluation visit at [facility] Chastity Wick MD LAB BLOOD ORDERABLES Final Resu lt [facility] Department [place] [address] * (ABNORMAL) Comprehensive metabolic panel (11/10/2024 8:15 AM CDT) Sodium 139 135 - 145 mmol/L Potassium, pl 3.6 3.3 - 4.9 mmol/L [facility] Chloride 100 97 - 110 mmol/L [facility] CO2 29 22 - 32 mmol/L [facility] Anion gap 10 2 - 15 mmol/L [facility] BUN 42(H) 6 - 25 mg/dL [facility] Creatinine 2.94(H) 0.60 - 1.10 mg/dL [facility] Glucose 87 70 - 199 mg/dL [facility] Comment: Interpretive Data Fasting glucose >/= 126 mg/dl is diagnostic for diabetes. Fasting is defined as no caloric intake for at least 8 hours. Fasting glucose between 100 mg/dl to 125 mg/dl is diagnostic of prediabetes. In a patient with classic symptoms of hyperglycemia or hyperglycemic crisis, a random glucose >/= 200 mg/dl is diagnostic for diabetes. In the absence of unequivocal hyperglycemia, results should be confirmed by repeat testing. The classification and Diagnosis of Diabetes Diabetes Care 2021; 46: S19-S40. Current interpretive data was last revised 2022. Calcium 9.8 8.5 - 10.3 mg/dL [facility] Bilirubin, total 0.3 0.1 - 1.2 mg/dL [facility] Protein, pl 7.2 6.5 - 8.5 g/dL [facility] Albumin 4.3 3.5 - 5.0 g/dL [facility] Alk phos 61 40 - 130 Units/L [facility] ALT 16 7 - 45 Units/L [facility] AST 21 10 - 45 Units/L [facility] Blood 11/10/2024 8:15 AM CDT 11/10/2024 9:01 AM CDT Narrative [facility] - 11/10/2024 9:39 AM CDT This lab is being obtained as part of a Kidney transplant evaluation, is time sensitive, and should only be drawn during the evaluation visit at [facility]. Chastity Wick MD LAB BLOOD ORDERABLES Final Resu lt [facility] Department [place] [address] * X-ray chest 2 views (11/10/2024 8:08 AM CDT) Anatomical Region Laterality Modality Body, Chest N/A Computed Radiogr aphy 11/10/2024 10:4 8 AM CDT Impressions 11/10/2024 10:48 AM CDT The lungs are clear. There is no focal pneumonic consolidation pneumothorax or pleural effusion. 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 Electronically signed by: Ponce Hankins M.D., MPH Narrative 11/10/2024 10:48 AM CDT EXAMINATION: 2 view chest radiograph Procedure Note Ponce Hankins MD - 11/10/2024 EXAMINATION: 2 view chest radiograph IMPRESSION: The lungs are clear. There is no focal pneumonic consolidation pneumothorax or pleural effusion. 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
--- NOTE | 2025-01-19 07:38 | WPDHPUPDATE1 ---
History and Physical Update Update Date/Time: 01/19/25 07:38 History and Physical has been reviewed, including an updated exam of the patient. There are NO changes in the patient's condition. Risks, benefits, and alternatives have been discussed and questions answered. Patient agrees to proceed with procedure.
--- NOTE | 2025-01-19 07:39 | PM.HPGS ---
History of Present Illness History of Present Illness Consent: Risks, benefits, and alternatives have been discussed and questions answered. Patient agrees to proceed with procedure. Chief complaint: post menopausal bleeding Narrative: Nadia Padgett is a 54 year old female with postmenopausal bleeding. Options were discussed with the patient and the plan is to proceed with D&C hysteroscopy. Risks of infection, bleeding, perforation, and possible pathology are reviewed. Patient voices understanding and agrees to proceed Review of Systems Review of Systems: not repeated day of surgery; patient states no changes in status [facility] Past Medical History Medical History (Updated 01/19/25 @ 07:42 by Marya Maddox MD) (normal spontaneous vaginal delivery) History of DVT (deep vein thrombosis) 2020 Seasonal allergies Vitamin D deficiency Polycystic kidney disease The patient is currently on the transplant list Hypertension Ventral hernia with bowel obstruction History of MRSA infection Pain of left heel Plantar fasciitis of left foot Surgical History Surgical History (Updated 01/19/25 @ 07:41 by Marya Maddox MD) History of tonsillectomy History of D&C For miscarriage History of History of hernia repair x2 Family History Family History Mother Diabetes mellitus Hypertension Father Hypertension Malignant neoplasm of prostate Other Family history of kidney disease Social History Social History (Updated 12/24/24 @ 13:26 by Andre Huber) Social History: 12/18/24 very confident filling out medical forms Smoking status: Never smoker Second hand tobacco smoke exposure: No Alcohol intake: current Drinks per week: 3 Alcohol use details: socially Substance use: never Substance use type: does not use Lack of Transportation: No Lack of Food: Never True Current Housing: I Have Housing Concerned About Future Housing: No Difficulty Paying Gas/Electric Bills: No Difficulty Paying for Meds: No Currently Unemployed: No Education: Bachelor's Degree Difficulty w/ Childcare or Family Care: No Living arrangements: with family Occupation/Education: occupation 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 [employer] Spiritual care concerns: No Agree to blood products: Yes Meds Home Medications and Allergies Home Medications ?Medication ?Instructions ?Recorded ?Confirmed ?Type lisinopril 20 2 tablet PO DAILY 11/09/20 01/13/25 History mg-hydrochlorothiazide 12.5 mg tablet oxybutynin chloride 10 mg 10 mg PO DAILY 11/09/20 01/13/25 History tablet,extended release 24 hr amlodipine 5 mg tablet 5 mg PO DAILY 09/07/22 01/13/25 History aspirin 81 mg tablet,delayed 81 mg PO DAILY 09/07/22 01/13/25 History release (Adult Low Dose Aspirin) fexofenadine 180 mg tablet 180 mg PO DAILY 09/07/22 01/13/25 History (Roxy Allergy) cholecalciferol (vitamin D3) 1,250 1,250 mcg PO MONTHLY #1 cap 11/22/23 01/13/25 Rx mcg (50,000 unit) capsule semaglutide (weight loss) 1.7 1.7 mg (0.75 mL) subcut WEEKLY #9 01/06/25 01/13/25 Rx mg/0.75 mL subcutaneous pen mL injector (Flythegap) Held on 01/13/25. Instructions: Patient Condition epinephrine 0.3 mg/0.3 mL 0.3 mg IM .COMPLEX 01/13/25 01/13/25 History injection, auto-injector fluticasone propionate 50 2 spray intranasal DAILY 01/13/25 01/13/25 History mcg/actuation nasal spray,suspension (24 Hour Allergy Relief) iqdckovf-csk-dksv-FA-Ca carb-vit K 1 tablet PO DAILY 01/13/25 01/13/25 History 18 mg iron-400 mcg-500 mg tablet (Women's One Daily) olopatadine 0.1 % eye drops 1 drp EACH EYE DAILY 01/13/25 01/13/25 History (Pataday Twice Daily Relief) risedronate 150 mg tablet 150 mg PO MONTHLY 01/13/25 01/13/25 History Allergies Allergy/AdvReac Type Severity Reaction Status Date / Time prednisone AdvReac Unknown Unknown Verified 01/13/25 15:24 Exam Const: General: healthy appearing and alert Orientation/consciousness: patient oriented x3 Resp: Effort & Inspection: normal respiratory effort Auscultation: clear to auscultation bilaterally Cardio: Rate: regular rate Rhythm: regular rhythm GI: GI Palp: Yes Soft to palpation, No Tenderness to palpation present (GI) and Yes Palpable mass present (Kidney palpable upper right abdomen) : External Female Exam: normal external appearance Speculum Exam - Vagina: normal appearance of the vagina and normal vaginal discharge Speculum Exam - Cervix: normal appearance of the cervix Bimanual exam- vagina & uterus: uterine size normal and consistency normal Bimanual Exam- Adnexa, other: normal adnexae and No adnexal tenderness Neuro: General: patient oriented x3 Assessment and Plan Assessment and plan (1) Post-menopausal bleeding: Code(s): N95.0 - Postmenopausal bleeding Status: Acute Assessment and Plan: Plan to proceed with D&C hysteroscopy
--- NOTE | 2025-01-19 08:17 | WPDANESEPPF ---
Anes - Initial Pre Proc Eval Procedure: Operation Date: 01/19/25 11:30 Proposed Procedures p Hysteroscopy Dilation and Curettage - Marya Maddox MD Date/Time: 01/19/25 08:17 Surgeon: Marya Maddox MD Pre Op Diagnosis: post menopausal bleeding Patient Data Age: 54 Gender: F Height: 1.63 m Weight: 68.04 kg Allergies Allergy/AdvReac Type Severity Reaction Status Date / Time prednisone AdvReac Unknown Unknown Verified 01/13/25 15:24 Home Medications ?Medication ?Instructions ?Recorded ?Confirmed ?Type lisinopril 20 2 tablet PO DAILY 11/09/20 01/13/25 History mg-hydrochlorothiazide 12.5 mg tablet oxybutynin chloride 10 mg 10 mg PO DAILY 11/09/20 01/13/25 History tablet,extended release 24 hr amlodipine 5 mg tablet 5 mg PO DAILY 09/07/22 01/13/25 History aspirin 81 mg tablet,delayed 81 mg PO DAILY 09/07/22 01/13/25 History release (Adult Low Dose Aspirin) fexofenadine 180 mg tablet 180 mg PO DAILY 09/07/22 01/13/25 History (Roxy Allergy) cholecalciferol (vitamin D3) 1,250 1,250 mcg PO MONTHLY #1 cap 11/22/23 01/13/25 Rx mcg (50,000 unit) capsule semaglutide (weight loss) 1.7 1.7 mg (0.75 mL) subcut WEEKLY #9 01/06/25 01/13/25 Rx mg/0.75 mL subcutaneous pen mL injector (Weign[employer]vy) Held on 01/13/25. Instructions: Patient Condition epinephrine 0.3 mg/0.3 mL 0.3 mg IM .COMPLEX 01/13/25 01/13/25 History injection, auto-injector fluticasone propionate 50 2 spray intranasal DAILY 01/13/25 01/13/25 History mcg/actuation nasal spray,suspension (24 Hour Allergy Relief) aesifsub-dwc-tzoy-FA-Ca carb-vit K 1 tablet PO DAILY 01/13/25 01/13/25 History 18 mg iron-400 mcg-500 mg tablet (Women's One Daily) olopatadine 0.1 % eye drops 1 drp EACH EYE DAILY 01/13/25 01/13/25 History (Pataday Twice Daily Relief) risedronate 150 mg tablet 150 mg PO MONTHLY 01/13/25 01/13/25 History Results Review: All pre-operative results and documents have been reviewed as part of the pre-operative evaluation. COUNTS INCLUDE 234 BEDS AT THE [facility] Past Medical History Medical History (normal spontaneous vaginal delivery) History of DVT (deep vein thrombosis) 2020 Seasonal allergies Vitamin D deficiency Polycystic kidney disease The patient is currently on the transplant list Hypertension Ventral hernia with bowel obstruction History of MRSA infection Pain of left heel Plantar fasciitis of left foot Surgical History Surgical History History of tonsillectomy History of D&C For miscarriage History of History of hernia repair x2 Family History Family History Mother Diabetes mellitus Hypertension Father Hypertension Malignant neoplasm of prostate Other Family history of kidney disease Social History Social History Social History: 12/18/24 very confident filling out medical forms Smoking status: Never smoker Second hand tobacco smoke exposure: No Alcohol intake: current Drinks per week: 3 Alcohol use details: socially Substance use: never Substance use type: does not use Lack of Transportation: No Lack of Food: Never True Current Housing: I Have Housing Concerned About Future Housing: No Difficulty Paying Gas/Electric Bills: No Difficulty Paying for Meds: No Currently Unemployed: No Education: Bachelor's Degree Difficulty w/ Childcare or Family Care: No Living arrangements: with family Occupation/Education: occupation 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 Informed Consent: The patient's anesthetic plan and its attendant risks and benefits were discussed with the patient/family/POA. Questions were solicited and answers provided to the satisfaction of the patient/family/POA.
[2025-01-19 09:30] VITALS: BP 128/92; PULSE 65; RESP 14; TEMP 36.7; O2SAT 100; BMI 26.2
[2025-01-19] MEDS: ACETAMINOPHEN 500 MG TABLET 1000 MG PO (09:55)
[2025-01-19] MEDS: SODIUM CHLORIDE 0.9% IV 500 ML 30 ML IV CONT (10:16)
--- NOTE | 2025-01-19 10:22 | P.PNAN_ITS ---
Anes - Eval Final PreProcedure Day of Procedure 01/19/25 10:22 Patient weight: overweight Heart: regular rate and rhythm Lungs: clear to auscultation Airway: Mallampati scale class II Neurological: alert and oriented Last oral intake: >/= 8 hours ASA classification: III Emergent: no Anesthetic plan: proceed Anesthesia type and monitoring: general GIVS and standard monitoring Results Review: All pre-operative results and documents have been reviewed as part of the pre- operative evaluation. Informed Consent: The patient's anesthetic plan and its attendant risks and benefits were discussed with the patient/family/POA. Questions were solicited and answers provided to the satisfaction of the patient/family/POA.
--- NOTE | 2025-01-19 13:19 | S_PTH ---
PATIENT: Nadia Padgett LOC: [facility] U#:[id number] AGE/SX: 54/F ROOM: RE01/19/[address]: Marya Maddox MD : 1970 BED: DIS: 01/19/2025 SPEC #: [id number] RECD: 01/19/25 14:07 STATUS: BHUPENDRA REQ #: [id number] MINDY: 01/19/25 13:[address]: Marya Maddox DEPT: [facility] Surgical RECD BY: Mary Lane ENTERED: 01/19/25 14:07 SP TYPE: Surgical OTHR DR: Parisa Downs APRN Tissues: A - Endometrial Curettings Procedures: Hematoxylin and Eosin Stain Gross and Microscopic Level 4
[2025-01-19 13:28] VITALS: BP 113/64; PULSE 79; RESP 16
--- NOTE | 2025-01-19 13:29 | W.PM.PROC2 ---
Procedure Note - Detailed Date of Procedure 01/19/25 Pre-op Diagnosis post menopausal bleeding Post-op Diagnosis Same Procedure Performed D&C hysteroscopy Surgeon Marya Maddox MD Anesthesia MAC Findings Uterus sounds to 6cm and is very atrophic without any lesions. Description of Procedure The patient is taken to the operating room and placed under anesthesia in the dorsal lithotomy position. She was prepped and draped usual sterile fashion. [place] speculum was placed in the vagina and the cervix was grasped on the anterior lip with a tenaculum. The uterus is sounded to 6cm. The diagnostic hysteroscope was placed and with no abnormalities noted it is removed. The sharp curette is used to curette the endometrium until a good uterine cry was noted in all areas. Minimal if any material was obtained consistent with the very atrophic appearance. All instruments are removed. Sponge, needle, and instrument counts are correct per the OR staff. The patient was awakened from anesthesia and taken to recovery in stable condition. Estimated Blood Loss 5 Drains No Packing No Pathology Yes (Endometrial curettings) Complications No immediate complications Condition Stable Disposition PACU
[2025-01-19 13:55] VITALS: BP 116/77; PULSE 65; O2SAT 96
[2025-01-19 14:20] VITALS: BP 138/89; PULSE 58
== END 2025-01-19 14:32 | disposition home or self-care (01) ==
PROVIDERS: PCP Nurse Practitioner Family; Visit Provider Obstetrics & Gynecology Gynecology
PROC: 0U5B8ZZ Destruction of Endometrium, Via Natural or Artificial Opening Endoscopic (ICD-10-PCS; CPT 58563; principal; 2025-01-19 11:30)
DX: N85.8 Other specified noninflammatory disorders of uterus (principal); I10 Essential (primary) hypertension; E55.9 Vitamin D deficiency, unspecified; Q61.3 Polycystic kidney, unspecified; Z79.82 Long term (current) use of aspirin; Z79.85 Long-term (current) use of injectable non-insulin antidiabetic drugs; Z98.890 Other specified postprocedural states; Z86.718 Personal history of other venous thrombosis and embolism; Z80.49 Family history of malignant neoplasm of other genital organs
CPT/HCPCS: 58558; 88305; A9270; J2003; J2250; J2704; J3010; J7040